=== PATIENT | male | born 1965 | race Two or more races ===

== ENCOUNTER 2017-06-25 20:23 | Emergency (ER) | payer OTHER ==
[2017-06-25 20:51] VITALS: BMI 27.3
--- NOTE | 2017-06-25 21:25 | PDOC ---
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 He describes his pain as a constant 8. Documentation prepared by Socrates Harper, acting as medical office specialist for Miguel Angel Serrano MD. <Socrates Harper - Last Filed: 06/25/17 22:00> - Resident Resident Name: Yesi Guzman - ED Attending Attestation I have performed the following: I have examined & evaluated the patient, The case was reviewed & discussed with the resident, I agree w/resident's findings & plan, Exceptions are as noted - Physicial Exam PE: 06/25/17 22:54 Patient is awake and alert, well-appearing, afebrile, in no distress. 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 Patient's influenza negative; serial abdominal exams reveal no focal tenderness. Patient is able tolerate by mouth. CBC/CMP within normal limit. Will discharge. <Miguel Angel Serrano - Last Filed: 06/25/17 22:57>
[2017-06-25] MEDS ORDERED: SODIUM CHLORIDE 0.9% 1000 ML INFUS.BAG IV ONE (21:37)
[2017-06-25] MEDS ORDERED: ACETAMINOPHEN 1000 MG/100 ML VIAL (NON FORMULARY) IVPB ONE (21:37)
--- NOTE | 2017-06-25 21:42 | PDOC ---
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 He notes the pain is 8/10 and constant, and he has been taking Tylenol and TheraFlu. He has taken Pepto Bismol for the diarrhea and nausea/vomiting and had an episode of black stool after this. He additionally notes generalized weakness and decreased appetite, as well as subjective fever and chills. He denies cough, runny nose, headache, rash, numbness, tingling, weakness, SOB, chest pain, abdominal pain, or any recent sick contacts. He has chronic pain since his H1N1 vaccination reaction in 2011 and takes oxycodone for this. Past History - Past Medical History Allergies/Adverse Reactions: Allergies Allergy/AdvReac Type Severity Reaction Status Date / Time No Known Allergies Allergy Verified 06/25/17 22:36 Home Medications: Ambulatory Orders Ondansetron [Zofran *Odt*] 4 mg SL BID PRN #20 od.tablet 06/25/17 COPD: No - Suicide/Smoking/Psychosocial Hx Smoking History: Never smoked Have you smoked in the past 12 months: No Information on smoking cessation initiated: No Hx Alcohol Use: No Drug/Substance Use Hx: No Substance Use Type: None Review of Systems - Review of Systems Able to Perform ROS?: Yes Constitutional: Yes: Chills, Fever, Loss of Appetite, Malaise, Weakness. No: Unexplained wgt Loss HEENTM: Yes: Throat Pain. No: Nose Congestion Respiratory: No: Cough, Shortness of Breath Cardiac (ROS): No: Chest Pain, Palpitations ABD/GI: Yes: Diarrhea, Nausea, Vomiting. No: Constipated : No: Burning, Dysuria Musculoskeletal: Yes: Muscle Pain. No: Back Pain, Neck Pain Integumentary: No: Bruising, Rash Neurological: No: Headache, Numbness, Tingling, Weakness, Dizziness Endocrine: No: Unexplained Weight Gain, Unexplained Weight Loss *Physical Exam - Vital Signs Last Vital Signs Temp Pulse Resp BP Pulse Ox 98.6 F 82 18 125/74 98 06/25/17 20:36 06/25/17 20:36 06/25/17 20:36 06/25/17 20:36 06/25/17 20:36 - Physical Exam General Appearance: Yes: Nourished, Appropriately Dressed, Other (well- appearing male with flushed cheeks, accompanied at bedside by significant other who is supportive, answering questions appropriately). No: Apparent Distress HEENT: positive: EOMI, MANNY, Normal ENT Inspection, Normal Voice, TMs Normal, Muffled/Hoarse voice (states chronic), Hearing Grossly Normal. negative: Scleral Icterus (R), Scleral Icterus (L), Pharyngeal Erythema, Tonsillar Exudate , Tonsillar Erythema, Nasal Congestion, Rhinorrhea, Sinus Tenderness Neck: positive: Trachea midline, Supple. negative: Tender, Rigid Respiratory/Chest: positive: Lungs Clear, Normal Breath Sounds. negative: Respiratory Distress, Crackles, Rhonchi, Stridor, Wheezing Cardiovascular: positive: Regular Rhythm, Regular Rate. negative: Edema, Murmur Gastrointestinal/Abdominal: positive: Normal Bowel Sounds, Soft. negative: Tender, Organomegaly, Pulsatile Mass, Guarding Lymphatic: negative: Adenopathy, Tenderness Musculoskeletal: positive: Normal Inspection. negative: Decreased Range of Motion, Vertebral Tenderness Extremity: positive: Normal Capillary Refill, Normal Inspection, Normal Range of Motion. negative: Tender, Cyanosis Integumentary: positive: Normal Color, Dry, Warm. negative: Erythema, Rash, Bruising Neurologic: positive: solution architect II-XII NML intact (grossly), Fully Oriented, Alert, Normal Mood/Affect, Normal Response, Motor Strength 5/5 ED Treatment Course - LABORATORY CBC & Chemistry Diagram: 06/25/17 21:56 06/25/17 21:56 Medical Decision Making - Medical Decision Making 51 YOM with stated h/o pulmonary fibrosis who p/w myalgias, nausea, vomiting, diarrhea, and sore throat. VS wnl and NAD on exam, flushed cheeks, HEENT normal exam, heart/lungs/abdomen blue. DDX IBNLT influenza, viral syndrome, strep pharyngitis, much less likely PNA/ bronchitis without cough/SOB. Ordered is CBCD, CMP, IVF, Ofirmev, Flu swab. 06/25/17 23:00 Labs result negative, Flu swab is negative, patient notes improved body pain after Ofirmev and IVF. Zofran 4 mg IVPUSH ordered and the patient is PO trialed, able to tolerate PO fluids and crackers. He is appropriate for DC home with close OP followup. Return precautions are discussed. *DC/Admit/Observation/Transfer Diagnosis at time of Disposition: Viral syndrome - Discharge Dispostion Disposition: HOME Condition at time of disposition: Stable Admit: No - Prescriptions Prescriptions: Ondansetron [Zofran *Odt*] 4 mg SL BID PRN #20 od.tablet PRN Reason: Nausea And/Or Vomiting - Referrals Referrals: Reynaldo Moseley MD [Primary Care Provider] - - Patient Instructions Printed Discharge Instructions: DI for Viral Gastroenteritis -- Adult Additional Instructions: You were seen in the ER for body aches, sore throat, nausea, vomiting, diarrhea , and decreased appetite. We did blood lab work and a flu swab, and there were no abnormalities. We gave you IV fluids, IV Tylenol, and IV Zofran and you were able to keep down food and water. 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 Take Tylenol and Motrin for pain. Please follow up with your primary doctor or return to the ER for any new or worsening symptoms. - Post Discharge Activity
[2017-06-25] MEDS ORDERED: ACETAMINOPHEN INJECTION 100 ML IVPB ONE (21:47)
[2017-06-25 22:02] LABS: BASO % 0.3 % (0-2.0); EOS % 1.1 % (0-4.5); HEMATOCRIT 43.5 % (35.4-49); HEMOGLOBIN 14.2 GM/dL (11.7-16.9); LYMPH % 19.6 % (8-40); MCH 30.3 pg (25.7-33.7); MCHC 32.6 g/dl (32.0-35.9); MEAN CELL VOLUME 93.1 fl (80-96); MEAN PLT VOLUME 7.5 fl (7.5-11.1); MONO % 7.6 % (3.8-10.2); NEUT % 71.4 % (42.8-82.8); PLATELET COUNT 220 K/MM3 (134-434); RBC 4.67 M/mm3 (4.00-5.60); RDW 13.5 % (11.9-15.9); WHITE BLOOD COUNT 7.3 K/mm3 (4.0-10.0)
[2017-06-25 22:32] LABS: ALBUMIN 3.6 g/dl (3.4-5.0); ANION GAP 6 (8-16); BILIRUBIN,TOTAL 0.4 mg/dL (0.2-1.0); BLOOD UREA NITROGEN 10 mg/dL (7-18); CALCIUM 8.2 mg/dL (8.5-10.1); CHLORIDE 106 mmol/L (98-107); CO2 27 mmol/L (21-32); CREATININE 1.1 mg/dL (0.7-1.3); GLUCOSE,RANDOM 105 mg/dL (74-106); MAGNESIUM 2.5 mg/dL (1.8-2.4); POTASSIUM 4.1 mmol/L (3.5-5.1); SGOT/AST 23 U/L (15-37); SGPT/ALT 36 U/L (12-78); SODIUM 139 mmol/L (136-145); TOT PROT 7.5 g/dl (6.4-8.2)
[2017-06-25 22:33] LABS: ALK PHOS 56 U/L (45-117)
[2017-06-25] MEDS ORDERED: ONDANSETRON 4 MG/2 ML VIAL IVPUSH ONE (22:45)
[2017-06-25] MEDS ORDERED: ONDANSETRON 4 MG/2 ML VIAL ONE (22:51)
[2017-06-25 23:10] VITALS: BP 122/70; PULSE 85; TEMP 98.1
== END 2017-06-25 23:11 | disposition home or self-care (01) ==
LOC: JER 20:23
PROC: 3E033NZ Introduction of Analgesics, Hypnotics, Sedatives into Peripheral Vein, Percutaneous Approach (ICD-10-PCS; principal; 2017-06-25)
PROC: 3E033GC Introduction of Other Therapeutic Substance into Peripheral Vein, Percutaneous Approach (ICD-10-PCS; 2017-06-25)
DX: B34.9 Viral infection, unspecified (principal); Z89.022 Acquired absence of left finger(s)
CPT/HCPCS: 36415; 80053; 83735; 84100; 85025; 87804; 99283-25

== ENCOUNTER 2017-10-18 07:02 | Emergency (ER) | payer OTHER ==
[2017-10-18 07:29] VITALS: BMI 25.9
--- NOTE | 2017-10-18 07:40 | PDOC ---
History of Present Illness - General History Source: Patient Exam Limitations: No Limitations - History of Present Illness Initial Comments: 10/18/17 07:36 51yo M with established history of pulmonary fibrosis and chronic pain s/p influenza vaccination (which led to digit amputation and coma; 2011) who presents today with generalized pain. Pt reports that he normally take oxycodone for his chronic pain, however recently he switched his physician to a doctor in the [place] due to insurance reasons. Pt states he recently was seeing his physician and had a bone density scan performed, however he did not receive any of his chronic pain medications. Pt states he started to develop his pain again, however it is not different than his normal chronic pain. Pt usually takes Gabapentin 600mg BID PO along with Percocet 10-325mg PO. Pt denies any headache,f/chills, SOB, palpitations, abdominal pain, diarrhea/constipation. Pt denies any acute neurological abnormalities. <Edward Vazquez - Last Filed: 10/18/17 08:58> <César Saavedra - Last Filed: 10/18/17 09:03> - General Chief Complaint: Pain, Acute Stated Complaint: GENERALIZED PAIN Time Seen by Provider: 10/18/17 07:32 Past History - Past Medical History COPD: No Other medical history: Insomnia - Immunization History Immunization Up to Date: Yes - Suicide/Smoking/Psychosocial Hx Smoking History: Never smoked Have you smoked in the past 12 months: No Information on smoking cessation initiated: No Hx Alcohol Use: No Drug/Substance Use Hx: No Substance Use Type: None <Edward Vazquez - Last Filed: 10/18/17 08:58> <César Saavedra - Last Filed: 10/18/17 09:03> - Past Medical History Allergies/Adverse Reactions: Allergies Allergy/AdvReac Type Severity Reaction Status Date / Time No Known Allergies Allergy Verified 06/25/17 22:36 Home Medications: Ambulatory Orders Gabapentin 600 mg PO BID 10/18/17 Gabapentin 600 mg PO BID #6 tablet 10/18/17 Oxycodone HCl/Acetaminophen [Endocet 10-325 mg Tablet] 1 each PO Q8H PRN #15 tablet MDD 3 tabs 10/18/17 Zolpidem Tartrate [Ambien] 5 mg PO HS 10/18/17 Review of Systems - Review of Systems Constitutional: No: Chills, Fever, Night Sweats, Weakness HEENTM: No: Eye Pain, Blurred Vision, Nose Congestion, Throat Pain Respiratory: No: Cough, Shortness of Breath, Wheezing Cardiac (ROS): No: Chest Pain, Lightheadedness, Palpitations, Syncope, Chest Tightness ABD/GI: No: Constipated, Diarrhea, Nausea, Vomiting, Abdominal cramping Musculoskeletal: Yes: Back Pain. No: Neck Pain Neurological: No: Headache, Numbness, Tingling, Dizziness <Edward Vazquez - Last Filed: 10/18/17 08:58> *Physical Exam - Vital Signs Last Vital Signs Temp Pulse Resp BP Pulse Ox 98.0 F 60 17 108/79 100 10/18/17 07:22 10/18/17 07:22 10/18/17 07:22 10/18/17 07:22 10/18/17 07:22 - Physical Exam Comments: 10/18/17 07:39 GEN: NAD, awake, alert, laying in bed HEENT: EOMI, MARI, sclera anicteric, moist mucosa Neck: ROM intact, no JVD LUNGS: Coarse breath sounds diffusely with satisfactory air entry CARDIAC: RRR no murmurs appreciated ABD: Soft, NT/ND, normoactive BS, no guarding, no rebound. EXT: Digit amputation noted. No edema. <Edward Vazquez - Last Filed: 10/18/17 08:58> - Vital Signs Last Vital Signs Temp Pulse Resp BP Pulse Ox 98.0 F 60 17 108/79 100 10/18/17 07:22 10/18/17 07:22 10/18/17 07:22 10/18/17 07:22 10/18/17 07:22 <César Saavedra - Last Filed: 10/18/17 09:03> Medical Decision Making - Medical Decision Making 10/18/17 07:45 Given pt's history most likely chronic pain due to not receiving his oxycodone and gabapentin --Doubt any type of PE: no edema, SpO2 100% on RA, no tachycardia --Doubt any WV: more pleuritic pain in nature and generalized --Doubt any dissection or aneurysm: No neurological deficits; BP controlled today 108/79 No need for workup Online directory shows no recent narcotic pickup 10/18/17 08:05 Explained to patient the need for his primary to follow-up and pt has an appointment with a pain specialist on November 09 of this year Can give a couple days supply, however discussed this isn't a long-term solution. <Edward Vazquez - Last Filed: 10/18/17 08:58> *DC/Admit/Observation/Transfer - Discharge Dispostion Admit: No <Edward Vazquez - Last Filed: 10/18/17 08:58> <César Saavedra - Last Filed: 10/18/17 09:03> Diagnosis at time of Disposition: Chronic pain Qualifiers: Chronic pain type: other chronic pain Qualified Code(s): G89.29 - Other chronic pain - Discharge Dispostion Disposition: HOME Condition at time of disposition: Stable - Prescriptions Prescriptions: Gabapentin 600 mg PO BID #6 tablet Oxycodone HCl/Acetaminophen [Endocet 10-325 mg Tablet] 1 each PO Q8H PRN #15 tablet MDD 3 tabs PRN Reason: Pain - Referrals Referrals: Reynaldo Moseley MD [Primary Care Provider] - Zac Pascal MD [Staff Physician] - - Patient Instructions Additional Instructions: You were seen here due to your chronic pain. A few days' supply has been prescribed to your pharmacy This is not a long-term solution and the sullivan will be to follow with your primary physician and your pain specialist appointment on November 09. If you do not have a primary physician feel free to call [phone] which is the resident offices at [facility] and schedule an appointment. If you feel any pain that's different than your usual chronic pain, please feel free to return if it is concerning to you. - Post Discharge Activity
--- NOTE | 2017-10-18 09:02 | PDOC ---
Attending Attestation - Resident Resident Name: Edward Vazquez - ED Attending Attestation I have performed the following: I have examined & evaluated the patient, The case was reviewed & discussed with the resident, I agree w/resident's findings & plan - HPI HPI: 10/18/17 08:58 51-year-old male with history of chronic pain syndrome/myalgia unclear severe illness in 2011 presents for refill of his chronic pain medications. Patient is no acute complaints, has daily myalgias and "lung pains" since his prolonged ICU stay, maintained on daily oxycodone 3 times a day prescribed by his primary care physician. 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 - Physicial Exam PE: 10/18/17 09:00 Vital signs normal Well-appearing seated comfortably in stretcher speaking full sentences Lungs are clear - Medical Decision Making 10/18/17 09:00 Patient seen and evaluated with the resident. I agree with the overall evaluation, assessment, and management with the following summary of visit: 51-year-old male with chronic pain syndrome presents for pain medication refill without any acute complaints and no red flags on history or physical exam. Has established a pain specialist follow-up, presentation seems reasonable given his history. Has bottle prescribed from March 2017 by his previous PCP, Dr. Torres. will give short term refill, prompt f/u in [facility] medicine clinic for further refills before his 11/09 appt understands return criteria
[2017-10-18 09:12] VITALS: BP 139/83; PULSE 62; TEMP 97.8
== END 2017-10-18 09:12 | disposition home or self-care (01) ==
LOC: JER 07:02
DX: G89.29 Other chronic pain (principal)
CPT/HCPCS: 99283-25

== ENCOUNTER 2018-05-02 16:37 | Emergency (ER) | payer OTHER ==
[2018-05-02 16:52] VITALS: BMI 26.6
--- NOTE | 2018-05-02 16:52 | PDOC ---
Rapid Medical Evaluation Chief Complaint: Lightheaded Time Seen by Provider: 05/02/18 16:49 Medical Evaluation: Allergies Allergy/AdvReac Type Severity Reaction Status Date / Time No Known Allergies Allergy Verified 06/25/17 22:36 05/02/18 16:49 I have performed a brief in person evaluation of this patient. This patient presents with a CC of: dizziness Pt is a 52 Yo male who states that he has been dizzy x 7 days. He denies slurred speech. He denies UE or LE paresthesia. PE: Skin: Clear Lungs: Clear Heart: RRR Abd: No pain MS: Moves all extremities without difficulty. Neuro: Alert and oriented, no protanator drift, no slurred speech, no ataxia. 5/ 5 strength in UE and LE Psych: Appropriate affect I have ordered the following: basic labs/EKG The patient will proceed to the ED for further evaluation. Discharge Disposition - Diagnosis Dizziness - Referrals Referrals: Zac Pascal MD [Primary Care Provider] - - Patient Instructions - Post Discharge Activity
[2018-05-02 17:20] LABS: BASO % 0.5 % (0-2.0); EOS % 0.6 % (0-4.5); HEMATOCRIT 43.7 % (35.4-49); HEMOGLOBIN 15.2 GM/dL (11.7-16.9); LYMPH % 14.2 % (8-40); MCHC 34.7 g/dl (32.0-35.9); MEAN CELL VOLUME 92.1 fl (80-96); MONO % 3.4 % (3.8-10.2); NEUT % 81.3 % (42.8-82.8); PLATELET COUNT 260 K/MM3 (134-434); RBC 4.75 M/mm3 (4.00-5.60); RDW 12.8 % (11.9-15.9); WHITE BLOOD COUNT 10.4 K/mm3 (4.0-10.0)
[2018-05-02] MEDS ORDERED: MECLIZINE HCL 25 MG TABLET (FP) PO ONE (17:27)
--- NOTE | 2018-05-02 17:35 | PDOC ---
History of Present Illness - General Chief Complaint: Lightheaded Stated Complaint: Lightheaded Time Seen by Provider: 05/02/18 16:49 History Source: Patient Exam Limitations: No Limitations - History of Present Illness Initial Comments: 05/02/18 17:30 Pt is a 52yo m with PMH of pulmonary fibrosis presenting to ED with complaints of dizziness which started suddenly 4days ago on Tuesday. Pt said he got up in the morning and had the sensation that the room is spinning. When ever he changes positions or walks, he feels dizzy. He denies changes in vision, tinnitus, ear fullness, headache, chest pain, SOB, n/v/d, weakness, numbness/ tingling. recent illnesses. He never had a feeling like this before. Denies hitting head, losing consciousness or falling down, but he does feel like he is about to fall when he walks due to dizziness. No recent surgeries, calf swelling , history of clots. PMD: [place] PMH: pulmonary fibrosis PSH: lung biopsy, L 2nd digit amputation Meds: prednisone, oxycodone, gabapentin, Ambien Allergies: ndka Past History - Past Medical History Allergies/Adverse Reactions: Allergies Allergy/AdvReac Type Severity Reaction Status Date / Time No Known Allergies Allergy Verified 05/02/18 16:49 Home Medications: Ambulatory Orders Gabapentin 600 mg PO BID #6 tablet 10/18/17 Oxycodone HCl/Acetaminophen [Endocet 10-325 mg Tablet] 1 each PO Q8H PRN #15 tablet MDD 3 tabs 10/18/17 Zolpidem Tartrate [Ambien] 5 mg PO HS 10/18/17 Meclizine HCl [Antivert -] 25 mg PO DAILY #7 tablet 05/02/18 COPD: No (lung disease) - Immunization History Immunization Up to Date: Yes - Suicide/Smoking/Psychosocial Hx Smoking History: Never smoked Have you smoked in the past 12 months: No Hx Alcohol Use: No Drug/Substance Use Hx: No Substance Use Type: None Review of Systems - Review of Systems Constitutional: No: Chills, Fever HEENTM: No: Eye Pain, Recent change in vision, Ear Discharge, Tinnitus, Mouth Pain Respiratory: No: Cough, Shortness of Breath Cardiac (ROS): No: Chest Pain, Lightheadedness, Palpitations, Syncope ABD/GI: Yes: Constipated. No: Diarrhea, Nausea, Rectal Bleeding, Vomiting, Tarry Stools : No: Burning, Dysuria, Hematuria Musculoskeletal: No: Back Pain, Muscle Weakness, Neck Pain Neurological: Yes: Dizziness. No: Headache, Numbness, Tingling, Tremors, Weakness Hematologic/Lymphatic: No: Blood Clots *Physical Exam - Vital Signs Last Vital Signs Temp Pulse Resp BP Pulse Ox 98.4 F 76 18 126/81 99 05/02/18 16:49 05/02/18 16:49 05/02/18 16:49 05/02/18 16:49 05/02/18 16:49 - Physical Exam General Appearance: Yes: Nourished, Appropriately Dressed. No: Apparent Distress HEENT: positive: EOMI (with horizontal nystagmus. Illicits dizziness.), MANNY, Hearing Grossly Normal. negative: Hearing Decreased Neck: positive: Trachea midline, Supple. negative: Lymphadenopathy (R), Lymphadenopathy (L) Respiratory/Chest: positive: Lungs Clear, Normal Breath Sounds. negative: Crackles, Rales, Rhonchi, Stridor, Wheezing Cardiovascular: positive: Regular Rhythm, Regular Rate, S1, S2. negative: Edema , JVD, Murmur Vascular Pulses: Carotid (R): 2+, Carotid (L): 2+, Dorsalis-Pedis (R): 2+, Doralis-Pedis (L): 2+ Gastrointestinal/Abdominal: positive: Normal Bowel Sounds, Soft. 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 negative: Facial Droop, Numbness, Sensory Deficit ED Treatment Course - LABORATORY CBC & Chemistry Diagram: 05/02/18 17:12 05/02/18 17:12 Medical Decision Making - Medical Decision Making 05/02/18 17:34 Pt is a 52yo m with PMH of pulmonary fibrosis presenting to ED with complaints of dizziness which started suddenly 4days ago on Tuesday Vitals: Selected Entries 05/02/18 16:49 Temperature 98.4 F Pulse Rate 76 Respiratory 18 Rate Blood Pressure 126/81 Blood Pressure 96 Mean O2 Sat by Pulse 99 Oximetry (%) PE: horizontal nystagmus illiciting dizziness. no neurological deficits, normal exam otherwise. DDx: central v. peripheral vertigo. BPPV, Meniere's, posterior stroke, vertebral artery dissection -Sudden onset, positional. High suspicion for BPPV. Low suspicion for stroke given symptoms are transient, based on position changes, sudden onset. Labs, ekg ordered by [facility]ME. Will give meclizine, IVF and reevaluate. 05/02/18 18:22 Laboratory Tests 05/02/18 05/02/18 17:12 17:12 WBC 10.4 H Hgb 15.2 Hct 43.7 Plt Count 260 Sodium 140 Potassium 4.2 Creatinine 1.2 Troponin I < 0.02 EKG: nsr. normal axis. MT and QTc normal. No stephanie or depressions. Flattented T in aVL. Inverted T in V1, V2. Labs wnl. Will reevaluate after fluids. Pt says he still feels dizzy after meclizine 05/02/18 18:27 *DC/Admit/Observation/Transfer Diagnosis at time of Disposition: Dizziness, Vertigo - Discharge Dispostion Disposition: HOME Condition at time of disposition: Improved Decision to Admit order: No - Referrals Referrals: Zac Pascal MD [Primary Care Provider] - - Patient Instructions Printed Discharge Instructions: DI for Vertigo Additional Instructions: You were seen here today for dizziness. Your tests were normal. The most likely cause of your symptoms is vertigo. I recommend following up with your primary care doctor for further evaluation and management of your symptoms. I have sent a prescription over to your pharmacy. Please take as directed. Come back to the emergency room if dizziness gets worse, you start vomiting, you develop headache, medication does not help, you have numbness/tingling or weakness in any part of your body or if any new concerning symptom develops. Thank you - Post Discharge Activity Forms/Work/School Notes: Back to Work
[2018-05-02] MEDS ORDERED: MECLIZINE HCL 25 MG TABLET (FP) ONE (17:42)
[2018-05-02 17:51] LABS: ALBUMIN 4.1 g/dl (3.4-5.0); ALK PHOS 75 U/L (45-117); ANION GAP 7 MMOL/L (8-16); BILIRUBIN,TOTAL 0.4 mg/dL (0.2-1); BLOOD UREA NITROGEN 17 mg/dL (7-18); CALCIUM 9.4 mg/dL (8.5-10.1); CHLORIDE 105 mmol/L (98-107); CO2 28 mmol/L (21-32); CREATININE 1.2 mg/dL (0.55-1.3); GLUCOSE,RANDOM 101 mg/dL (74-106); POTASSIUM 4.2 mmol/L (3.5-5.1); SGOT/AST 33 U/L (15-37); SGPT/ALT 45 U/L (13-61); SODIUM 140 mmol/L (136-145); TOT PROT 8.3 g/dl (6.4-8.2)
[2018-05-02] MEDS ORDERED: SODIUM CHLORIDE 1,000 ML IV STA (18:21)
--- NOTE | 2018-05-02 19:05 | PDOC ---
*Physical Exam - Vital Signs Last Vital Signs Temp Pulse Resp BP Pulse Ox 98.4 F 76 18 126/81 99 05/02/18 16:49 05/02/18 16:49 05/02/18 16:49 05/02/18 16:49 05/02/18 16:49 ED Treatment Course - LABORATORY CBC & Chemistry Diagram: 05/02/18 17:12 05/02/18 17:12 - ADDITIONAL ORDERS Additional order review: Laboratory Results 05/02/18 17:12 Sodium 140 Potassium 4.2 Chloride 105 Carbon Dioxide 28 Anion Gap 7 L BUN 17 Creatinine 1.2 Creat Clearance w eGFR > 60 Random Glucose 101 Calcium 9.4 Total Bilirubin 0.4 AST 33 ALT 45 Alkaline Phosphatase 75 Creatine Kinase 308 Creatine Kinase Index 1.1 CK-MB (CK-2) 3.5 Troponin I < 0.02 Total Protein 8.3 H Albumin 4.1 05/02/18 17:12 RBC 4.75 MCV 92.1 MCHC 34.7 RDW 12.8 MPV 8.0 Neutrophils % 81.3 Lymphocytes % 14.2 D Monocytes % 3.4 L Eosinophils % 0.6 Basophils % 0.5 - Medications Given in the ED: ED Medications Discontinued Medications Generic Name Dose Route Start Last Admin Trade Name Freq PRN Reason Stop Dose Admin Meclizine HCl 25 mg 05/02/18 17:27 05/02/18 17:45 Antivert - PO 05/02/18 17:28 25 mg ONCE ONE Administration Medical Decision Making - Medical Decision Making Pt signed out by Dr. Hargrove. Pt was provided IVF and meclizine. Pt states he is feeling better, is still receiving IVF. Will reassess and make sure pt can ambulate before discharge. 05/02/18 19:04 IVF completed, pt states vertigo is much improved. Pt able to ambulate without difficulty. 05/02/18 19:38 Considering normal lab results and imaging pt can be discharged to home with follow-up. Pt advised to follow-up with PCP in 1-2 days. Strict return precautions provided with pt understanding. 05/02/18 19:43 *DC/Admit/Observation/Transfer Diagnosis at time of Disposition: Dizziness, Vertigo - Discharge Dispostion Disposition: HOME Condition at time of disposition: Improved - Prescriptions Prescriptions: Meclizine HCl [Antivert -] 25 mg PO DAILY #7 tablet - Referrals Referrals: Zac Pascal MD [Primary Care Provider] - - Patient Instructions Printed Discharge Instructions: DI for Vertigo Additional Instructions: You were seen here today for dizziness. Your tests were normal. The most likely cause of your symptoms is vertigo. I recommend following up with your primary care doctor for further evaluation and management of your symptoms. I have sent a prescription over to your pharmacy. Please take as directed. Come back to the emergency room if dizziness gets worse, you start vomiting, you develop headache, medication does not help, you have numbness/tingling or weakness in any part of your body or if any new concerning symptom develops. Thank you - Post Discharge Activity Forms/Work/School Notes: Back to Work
[2018-05-02 19:06] LABS: INR 1.09 (0.83-1.09); PROTHROMBIN TIME (PATIENT) 12.9 SEC (9.7-13.0)
[2018-05-02 19:40] VITALS: BP 107/60; PULSE 52; TEMP 98
--- NOTE | 2018-05-02 19:50 | PDOC ---
Attending Attestation - HPI HPI: 05/02/18 20:02 The patient is a 52 year old male with a significant past medical history of pulmonary fibrosis presenting to ED with complaints of sudden onset of dizziness 4 days ago. The patient states he got up [place] morning and had the sensation that the room is spinning which is exacerbated by changing his positions. He denies ever feeling like this before. He denies any head trauma or visual changes. The patient denies chest pain, shortness of breath, headache and dizziness. The patient denies fever, chills, nausea, vomit, diarrhea and constipation. The patient denies dysuria, frequency, urgency and hematuria. Allergies: NKDA PMD: Dr. 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 Meds: prednisone, oxycodone, gabapentin, Ambien - Medical Decision Making 05/02/18 20:02 Documentation prepared by Radha Zhu, acting as healthcare or medical for Hillary Garza MD <Radha Zhu - Last Filed: 05/02/18 20:02> - Resident Resident Name: Aniyah Hargrove - ED Attending Attestation I have performed the following: I have examined & evaluated the patient, The case was reviewed & discussed with the resident, I agree w/resident's findings & plan, Exceptions are as noted - HPI HPI: 05/02/18 19:45 52 yo male p/w sensation of the room spinning head ncat eyes manisha eomi,++ horizontal nystagmus neck no jvd lungs cta b/l cvs [id number] abd soft,nontender no flank tenderness ext no edema 'skin wawrm and dry neuro no ataxia,cn2-12 grossly intact ,motor strength 5/5 b/l ,this is after he received meclizine,no facial droop - Physicial Exam PE: 05/03/18 01:53 wnwd 52 yo male p/w dizziness head ncat eyes + nystagmus neck supple lungs cta b/l cvs [id number] abd nontender ext no e/c/c neuro axox3,ambulatory,motor strength 5/5 skin warm and dry psych appropriate - Medical Decision Making 05/02/18 19:50 pt;s symptoms improved with meclizine imp vertigo <Hillary Garza - Last Filed: 05/03/18 01:55>
--- NOTE | 2018-05-04 11:12 | EKG ---
Test Reason : Blood Pressure : / mmHG Vent. Rate : 064 BPM Atrial Rate : 064 BPM P-R Int : 144 ms QRS Dur : 082 ms QT Int : 412 ms P-R-T Axes : 044 026 055 degrees QTc Int : 425 ms NORMAL SINUS RHYTHM NORMAL ECG NO PREVIOUS ECGS AVAILABLE Confirmed by RADHA DE ANDA MD ([id number]) on 05/04/2018 11:11:49 AM Referred By: Confirmed By:RADHA DE ANDA MD
== END 2018-05-02 20:03 | disposition home or self-care (01) ==
LOC: JER 16:37
PROC: 3E0337Z Introduction of Electrolytic and Water Balance Substance into Peripheral Vein, Percutaneous Approach (ICD-10-PCS; principal; 2018-05-02)
DX: R42 Dizziness and giddiness (principal); Z87.09 Personal history of other diseases of the respiratory system; Z89.022 Acquired absence of left finger(s)
CPT/HCPCS: 36415; 80053; 82550; 82553; 84484; 85025; 85610; 86850; 86900; 86901; 93005; 93010; 99284-25; J7030

== ENCOUNTER 2018-06-04 12:13 | Emergency (ER) | payer OTHER ==
[2018-06-04 12:28] VITALS: BMI 25.9
[2018-06-04] MEDS ORDERED: MECLIZINE HCL 25 MG TABLET (FP) PO ONE ×2 (12:51→16:56)
[2018-06-04] MEDS ORDERED: SODIUM CHLORIDE 1,000 ML IV STA (12:51)
[2018-06-04] MEDS ORDERED: MECLIZINE HCL 25 MG TABLET (FP) ONE ×2 (12:55→17:14)
--- NOTE | 2018-06-04 13:03 | PDOC ---
History of Present Illness - General Chief Complaint: Lightheaded Stated Complaint: DIZZINESS Time Seen by Provider: 06/04/18 12:35 History Source: Patient Exam Limitations: Clinical Condition - History of Present Illness Initial Comments: 06/04/18 12:57 Patient with history of pulmonary fibrosis not on meds present with complaint of dizziness and spinning sensation upon wake yesterday and today. Patient reported room spinning wench he gets out of bed in the morning. Patient was seen a month ago for similar symptoms and was discharged home on meclizine for vertigo with advise to follow with PCP by reported PCP will not continue medication and has not been taking any medications since. Patient has not had any follow-up PCP visit. Patient reported seen advance agent 2 months ago for pulmonary fibrosis and everything was fine. Patient never had a history of vertigo on to a month ago. Patient denies nausea, vomiting. Patient endorses light increase sensitivity. Patient denies any other symptoms Timing/Duration: 24 hours Past History - Past Medical History Allergies/Adverse Reactions: Allergies Allergy/AdvReac Type Severity Reaction Status Date / Time No Known Allergies Allergy Verified 06/04/18 12:28 Home Medications: Ambulatory Orders Gabapentin 600 mg PO BID #6 tablet 10/18/17 Oxycodone HCl/Acetaminophen [Endocet 10-325 mg Tablet] 1 each PO Q8H PRN #15 tablet MDD 3 tabs 10/18/17 Zolpidem Tartrate [Ambien] 5 mg PO HS 10/18/17 Meclizine HCl [Antivert -] 25 mg PO DAILY #7 tablet 05/02/18 Meclizine HCl 25 mg PO Q6H PRN #20 tab.chew 06/04/18 Prednisone 5 mg PO DAILY 06/04/18 COPD: No (lung disease, PULMONARY FIBROSIS) - Immunization History Immunization Up to Date: Yes - Suicide/Smoking/Psychosocial Hx Smoking History: Never smoked Have you smoked in the past 12 months: No Information on smoking cessation initiated: No Hx Alcohol Use: No Drug/Substance Use Hx: No Substance Use Type: None Review of Systems - Review of Systems Able to Perform ROS?: Yes Is the patient limited Maltese proficient: No Constitutional: No: Chills, Fever, Malaise, Weakness HEENTM: No: Eye Pain, Blurred Vision, Tearing, Recent change in vision, Double Vision Respiratory: No: Symptoms reported, See HPI, Cough, Orthopnea, Shortness of Breath, SOB with Exertion, SOB at Rest, Stridor, Wheezing, Productive cough, Hemoptysis, Other Cardiac (ROS): No: Symptoms Reported, See HPI, Chest Pain, Edema, Irregular Heart Rate, Lightheadedness, Palpitations, Syncope, Chest Tightness, Other ABD/GI: No: Nausea, Vomiting Neurological: Yes: Pre-Existing Deficit, Dizziness. No: Headache, Numbness, Paresthesia, Tingling, Weakness, Unsteady Gait, Ataxia All Other Systems: Reviewed and Negative *Physical Exam - Vital Signs Last Vital Signs Temp Pulse Resp BP Pulse Ox 98.0 F 68 16 126/79 98 06/04/18 12:26 06/04/18 12:26 06/04/18 12:26 06/04/18 12:26 06/04/18 12:26 - Physical Exam Comments: 06/04/18 13:00 GENERAL: Well developed, well nourished. Awake and alert. No acute distress. HEENT: Normocephalic, atraumatic. PERRLA, EOMI. No conjunctival pallor. Sclera are non-icteric. Moist mucous membranes. Oropharynx is clear. NECK: Supple. Full ROM. CARDIOVASCULAR: Regular rate and rhythm. No murmurs, rubs, or gallops. Distal pulses are 2+ and symmetric. PULMONARY: No evidence of respiratory distress. Lungs clear to auscultation bilaterally. No wheezing, rales or rhonchi. ABDOMINAL: Soft. Non-tender. Non-distended. No rebound or guarding. No organomegaly. Normoactive bowel sounds. MUSCULOSKELETAL Normal range of motion at all joints. EXTREMITIES: No cyanosis. No clubbing. No edema. No calf tenderness. SKIN: Warm and dry. Normal capillary refill. No rashes. No jaundice. NEUROLOGICAL: Alert, awake, appropriate. Gait is normal without ataxia. PSYCHIATRIC: Cooperative. Good eye contact. Appropriate mood General Appearance: Yes: Nourished, Appropriately Dressed. No: Apparent Distress Moderate Sedation - Procedure Monitoring Vital Signs: Procedure Monitoring Vital Signs Temperature 98.0 F 06/04/18 12:26 Pulse Rate 68 06/04/18 12:26 Respiratory Rate 16 06/04/18 12:26 Blood Pressure 126/79 06/04/18 12:26 O2 Sat by Pulse Oximetry (%) 98 06/04/18 12:26 ED Treatment Course - LABORATORY CBC & Chemistry Diagram: 06/04/18 13:11 06/04/18 13:15 Medical Decision Making - Medical Decision Making 06/04/18 13:00 Patient with history of pulmonary fibrosis present with complaint of spinning sensation and dizziness upon wake when he gets out of bed. Patient has similar episode a month ago and all workup was negative and patient discharged home with treatment for vertigo. Clinical exam unremarkable with no more neuro exams. EKG shows NSR CBC, CMP labs ordered. Meclizine 25 mg by mouth and IV hydration with 1 L normal saline ordered. Will consider a head CAT scan based on lab results. 06/04/18 13:03 06/04/18 14:35 Patient received IL NS bolus and meclizine 25mg PO. report still feeling dizzy. lab wnl. reglan 10mg IV ordered . head CT ordered to r/o any intracranial pathology 06/04/18 16:19 dizziness improves with reglan and IVF. head CT shows no acute pathology. patient stable for discharge on meclizine with neurology follow-up *DC/Admit/Observation/Transfer Diagnosis at time of Disposition: Vertigo, Dizziness - Discharge Dispostion Disposition: HOME Condition at time of disposition: Stable Decision to Admit order: No - Prescriptions Prescriptions: Meclizine HCl 25 mg PO Q6H PRN #20 tab.chew PRN Reason: vertigo - Referrals Referrals: Zac Pascal MD [Primary Care Provider] - Sean Brian MD [Staff Physician] - - Patient Instructions Printed Discharge Instructions: Benign Paroxysmal Positional Vertigo, Vertigo Additional Instructions: your labs was normal. your head CAT scan was negative. take medication as prescribed as needed for vertigo. Follow-up with referred neurologist Dr. Brian as soon as possible - Post Discharge Activity
--- NOTE | 2018-06-04 13:10 | PDOC ---
*Physical Exam - Vital Signs Last Vital Signs Temp Pulse Resp BP Pulse Ox 98.0 F 68 16 126/79 98 06/04/18 12:26 06/04/18 12:26 06/04/18 12:26 06/04/18 12:26 06/04/18 12:26 <Ino Winston - Last Filed: 06/04/18 13:10> - Vital Signs Last Vital Signs Temp Pulse Resp BP Pulse Ox 98.0 F 68 16 126/79 98 06/04/18 12:26 06/04/18 12:26 06/04/18 12:26 06/04/18 12:26 06/04/18 12:26 <Theo Ernst - Last Filed: 06/04/18 16:26> Heart Score/ECG Review - ECG Impressions Comment:: 06/04/18 13:10 Twelve-lead EKG was performed and reviewed by me. There is normal sinus rhythm with a normal rate. Rate of 68 The axis is normal. The intervals are normal. There is normal R wave progression There are no ST or T wave abnormalities. Impression: Normal twelve-lead EKG <Marcelo Winstonan - Last Filed: 06/04/18 13:10> ED Treatment Course - LABORATORY CBC & Chemistry Diagram: 06/04/18 13:11 06/04/18 13:15 - ADDITIONAL ORDERS Additional order review: Laboratory Results 06/04/18 13:15 Sodium 142 Potassium 4.5 Chloride 108 H Carbon Dioxide 27 Anion Gap 6 L BUN 13 Creatinine 1.1 Creat Clearance w eGFR > 60 Random Glucose 98 Calcium 8.6 Total Bilirubin 0.3 AST 32 ALT 47 Alkaline Phosphatase 75 Total Protein 7.5 Albumin 3.5 06/04/18 13:11 RBC 4.76 MCV 91.5 MCHC 32.5 RDW 12.9 MPV 7.8 Neutrophils % 70.2 Lymphocytes % 19.8 D Monocytes % 6.6 D Eosinophils % 2.9 D Basophils % 0.5 - RADIOLOGY Radiology Studies Ordered: Category Date Time Status HEAD CT WITH AND W/O CONTRAST [CT] Stat CT Scan 06/04/18 15:40 Completed - Medications Given in the ED: ED Medications Discontinued Medications Generic Name Dose Route Start Last Admin Trade Name Freq PRN Reason Stop Dose Admin Sodium Chloride 1,000 mls @ 1,000 mls/hr 06/04/18 12:51 06/04/18 13:14 Normal Saline - IV 06/04/18 13:50 1,000 mls/hr ASDIR STA Administration Meclizine HCl 25 mg 06/04/18 12:51 06/04/18 13:14 Antivert - PO 06/04/18 12:52 25 mg ONCE ONE Administration Metoclopramide HCl 10 mg 06/04/18 14:35 06/04/18 14:48 Reglan Injection - IVPUSH 06/04/18 14:36 10 mg ONCE ONE Administration <Theo Ernst - Last Filed: 06/04/18 16:26> Medical Decision Making - Medical Decision Making 06/04/18 13:09 The patient was seen and evaluated in conjunction with RACHELL Ernst under my direct supervision, ancillary studies were reviewed. I independently interviewed and evaluated the patient and I agree with the plan as outlined by RACHELL Ernst . <Ion Winston - Last Filed: 06/04/18 13:10> *DC/Admit/Observation/Transfer <Ion Winston - Last Filed: 06/04/18 13:10> <Theo Ernst - Last Filed: 06/04/18 16:26> Diagnosis at time of Disposition: Vertigo, Dizziness - Discharge Dispostion Disposition: HOME Condition at time of disposition: Stable - Prescriptions Prescriptions: Meclizine HCl 25 mg PO Q6H PRN #20 tab.chew PRN Reason: vertigo - Referrals Referrals: Sean Brian MD [Staff Physician] - Zac aPscal MD [Primary Care Provider] - - Patient Instructions Printed Discharge Instructions: Vertigo, Benign Paroxysmal Positional Vertigo Additional Instructions: your labs was normal. your head CAT scan was negative. take medication as prescribed as needed for vertigo. Follow-up with referred neurologist Dr. Brian as soon as possible - Post Discharge Activity
[2018-06-04 13:43] LABS: BASO % 0.5 % (0-2.0); EOS % 2.9 % (0-4.5); HEMATOCRIT 43.6 % (35.4-49); HEMOGLOBIN 14.2 GM/dL (11.7-16.9); LYMPH % 19.8 % (8-40); MCH 29.8 pg (25.7-33.7); MCHC 32.5 g/dl (32.0-35.9); MEAN CELL VOLUME 91.5 fl (80-96); MEAN PLT VOLUME 7.8 fl (7.5-11.1); MONO % 6.6 % (3.8-10.2); NEUT % 70.2 % (42.8-82.8); PLATELET COUNT 248 K/MM3 (134-434); RBC 4.76 M/mm3 (4.00-5.60); RDW 12.9 % (11.9-15.9); WHITE BLOOD COUNT 9.9 K/mm3 (4.0-10.0)
[2018-06-04 14:15] LABS: ALBUMIN 3.5 g/dl (3.4-5.0); ALK PHOS 75 U/L (45-117); ANION GAP 6 MMOL/L (8-16); BILIRUBIN,TOTAL 0.3 mg/dL (0.2-1); BLOOD UREA NITROGEN 13 mg/dL (7-18); CALCIUM 8.6 mg/dL (8.5-10.1); CHLORIDE 108 mmol/L (98-107); CO2 27 mmol/L (21-32); CREATININE 1.1 mg/dL (0.55-1.3); GLUCOSE,RANDOM 98 mg/dL (74-106); POTASSIUM 4.5 mmol/L (3.5-5.1); SGOT/AST 32 U/L (15-37); SGPT/ALT 47 U/L (13-61); SODIUM 142 mmol/L (136-145); TOT PROT 7.5 g/dl (6.4-8.2)
[2018-06-04] MEDS ORDERED: METOCLOPRAMIDE HCL INJECTION 10 MG/2 ML VIAL IVPUSH ONE (14:35)
[2018-06-04] MEDS ORDERED: METOCLOPRAMIDE HCL INJECTION 10 MG/2 ML VIAL ONE (14:41)
[2018-06-04] MEDS ORDERED: SODIUM CHLORIDE 1,000 ML IV SCH (14:45)
[2018-06-04 16:55] VITALS: BP 123/72; PULSE 69; TEMP 98.2
--- NOTE | 2018-06-04 17:15 | EKG ---
Test Reason : Blood Pressure : / mmHG Vent. Rate : 068 BPM Atrial Rate : 068 BPM P-R Int : 150 ms QRS Dur : 076 ms QT Int : 394 ms P-R-T Axes : 057 038 047 degrees QTc Int : 418 ms NORMAL SINUS RHYTHM NORMAL ECG WHEN COMPARED WITH ECG OF 02-MAY-2018 17:00, NO SIGNIFICANT CHANGE WAS FOUND Confirmed by KEANU HUNTLEY MD ([id number]) on 06/04/2018 5:14:50 PM Referred By: Confirmed By:KEANU HUNTLEY MD
== END 2018-06-04 16:55 | disposition home or self-care (01) ==
LOC: JER 12:13
PROC: 3E033GC Introduction of Other Therapeutic Substance into Peripheral Vein, Percutaneous Approach (ICD-10-PCS; principal; 2018-06-04)
PROC: 3E0337Z Introduction of Electrolytic and Water Balance Substance into Peripheral Vein, Percutaneous Approach (ICD-10-PCS; 2018-06-04)
DX: R42 Dizziness and giddiness (principal); J84.10 Pulmonary fibrosis, unspecified
CPT/HCPCS: 36415; 70470-TC; 80053; 85025; 93005; 93010; 99283-25; J7030

== ENCOUNTER 2018-07-11 20:05 | Emergency (ER) | payer OTHER ==
[2018-07-11 20:14] VITALS: BMI 25.8
--- NOTE | 2018-07-11 20:15 | PDOC ---
Rapid Medical Evaluation Medical Evaluation: Allergies Allergy/AdvReac Type Severity Reaction Status Date / Time No Known Allergies Allergy Verified 07/11/18 20:08 Vital Signs Temp Pulse Resp BP Pulse Ox 97.6 F 69 20 146/66 98 07/11/18 20:08 07/11/18 20:08 07/11/18 20:08 07/11/18 20:08 07/11/18 20:08 I have performed a brief in-person evaluation of this patient. The patient presents with a chief complaint of: C/O vertigo x 2 months; seen prior for this, had CT head which was negative, d/willie on Meclizine which helped for a period; saw neurologist last week and is scheduled for MRI next week Pertinent physical exam findings: In NAD, no nystagmus, no focal deficits, normal gait I have ordered the following: Labs The patient will proceed to the ED for further evaluation. 07/11/18 20:14
[2018-07-11 20:35] LABS: BASO % 0.5 % (0-2.0); EOS % 1.4 % (0-4.5); HEMOGLOBIN 14.9 GM/dL (11.7-16.9); LYMPH % 27.5 % (8-40); MCHC 34.5 g/dl (32.0-35.9); MEAN CELL VOLUME 89.9 fl (80-96); MEAN PLT VOLUME 7.9 fl (7.5-11.1); MONO % 6.4 % (3.8-10.2); NEUT % 64.2 % (42.8-82.8); PLATELET COUNT 264 K/MM3 (134-434); RBC 4.79 M/mm3 (4.00-5.60); RDW 13.2 % (11.9-15.9)
[2018-07-11 21:21] LABS: ANION GAP 7 MMOL/L (8-16); BLOOD UREA NITROGEN 13 mg/dL (7-18); CALCIUM 9.2 mg/dL (8.5-10.1); CHLORIDE 106 mmol/L (98-107); CO2 28 mmol/L (21-32); CREATININE 1.1 mg/dL (0.55-1.3); GLUCOSE,RANDOM 89 mg/dL (74-106); POTASSIUM 3.9 mmol/L (3.5-5.1); SODIUM 140 mmol/L (136-145)
[2018-07-11] MEDS ORDERED: MECLIZINE HCL 25 MG TABLET (FP) PO ONE (22:39)
[2018-07-11] MEDS ORDERED: MECLIZINE HCL 25 MG TABLET (FP) ONE (22:43)
--- NOTE | 2018-07-11 23:00 | PDOC ---
History of Present Illness - General History Source: Patient Exam Limitations: No Limitations - History of Present Illness Initial Comments: 07/11/18 23:04 The patient is a 52 year old male with a significant past medical history of pulmonary fibrosis who presents to the emergency department with dizziness since earlier today. The patient states that he was at work earlier today when he felt a sudden onset of dizziness. The patient reports that he held on to his desk at work and the feeling went away. The patient states that his symptoms soon returned while walking to the elevator by which he syncopize and loss consciousness for about 5 minutes. He states that he felt the room spinning during his dizziness. The patient denies any chest pain, shortness of breath, or headache. He states that he has had similar episode in the past (2011). He denies any other symptoms or complaints. <Elizabeth Rojas - Last Filed: 07/11/18 23:04> <Hillary Garza - Last Filed: 07/12/18 00:28> - General Chief Complaint: Lightheaded Stated Complaint: DIZZINESS Time Seen by Provider: 07/11/18 21:28 Past History <Elizabeth Rojas - Last Filed: 07/11/18 23:04> - Past Medical History COPD: No (lung disease, PULMONARY FIBROSIS) - Immunization History Immunization Up to Date: Yes - Suicide/Smoking/Psychosocial Hx Smoking History: Never smoked Have you smoked in the past 12 months: No Hx Alcohol Use: No Drug/Substance Use Hx: No Substance Use Type: None <Hillary Garza - Last Filed: 07/12/18 00:28> - Past Medical History Allergies/Adverse Reactions: Allergies Allergy/AdvReac Type Severity Reaction Status Date / Time No Known Allergies Allergy Verified 07/11/18 20:08 Home Medications: Ambulatory Orders Gabapentin 600 mg PO BID #6 tablet 10/18/17 Oxycodone HCl/Acetaminophen [Endocet 10-325 mg Tablet] 1 each PO Q8H PRN #15 tablet MDD 3 tabs 10/18/17 Prednisone 5 mg PO DAILY 06/04/18 Review of Systems - Review of Systems Able to Perform ROS?: Yes Comments:: 07/11/18 23:06 CONSTITUTIONAL: Absent: fever, no chills, no fatigue EYES: Absent: visual changes ENT: Absent: ear pain, no sore throat CARDIOVASCULAR: Absent: chest pain, no palpitations RESPIRATORY: Absent: cough, no SOB GI: Absent: abdominal pain, no nausea, no vomiting, no constipation, no diarrhea GENITOURINARY: Absent: dysuria, no frequency, no hematuria MUSKULOSKELETAL: Absent: back pain, no arthralgia, no myalgia SKIN: Absent: rash NEURO: Absent: headache <Elizabeth Rojas - Last Filed: 07/11/18 23:04> *Physical Exam - Vital Signs Last Vital Signs Temp Pulse Resp BP Pulse Ox 97.6 F 69 20 146/66 98 07/11/18 20:08 07/11/18 20:08 07/11/18 20:08 07/11/18 20:08 07/11/18 20:08 - Physical Exam Comments: 07/11/18 23:04 GENERAL: Well-appearing, well-nourished. No apparent distress. HEENT: Normocephalic, atraumatic. PERRL, EOM intact. CARDIOVASCULAR: Normal S1, S2. Regular rate and rhythm. PULMONARY: Clear to auscultation bilaterally. ABDOMEN: Soft, non-distended, non-tender. EXTREMITIES: Normal ROM in all four extremities. No gross deformities. SKIN: Warm, dry. No rash NEUROLOGICAL: No focal neurological deficits. <Elizabeth Rojas - Last Filed: 07/11/18 23:04> - Vital Signs Last Vital Signs Temp Pulse Resp BP Pulse Ox 97.6 F 69 20 146/66 98 07/11/18 20:08 07/11/18 20:08 07/11/18 20:08 07/11/18 20:08 07/11/18 20:08 <Hillary Garza - Last Filed: 07/12/18 00:28> Moderate Sedation - Procedure Monitoring Vital Signs: Procedure Monitoring Vital Signs Temperature 97.6 F 07/11/18 20:08 Pulse Rate 69 07/11/18 20:08 Respiratory Rate 20 07/11/18 20:08 Blood Pressure 146/66 07/11/18 20:08 O2 Sat by Pulse Oximetry (%) 98 07/11/18 20:08 <Elizabeth Rojas - Last Filed: 07/11/18 23:04> - Procedure Monitoring Vital Signs: Procedure Monitoring Vital Signs Temperature 97.6 F 07/11/18 20:08 Pulse Rate 69 07/11/18 20:08 Respiratory Rate 20 07/11/18 20:08 Blood Pressure 146/66 07/11/18 20:08 O2 Sat by Pulse Oximetry (%) 98 07/11/18 20:08 <Hillary Garza - Last Filed: 07/12/18 00:28> ED Treatment Course - LABORATORY CBC & Chemistry Diagram: 07/11/18 20:29 07/11/18 20:29 - ADDITIONAL ORDERS Additional order review: Laboratory Results 07/11/18 20:29 Sodium 140 Potassium 3.9 Chloride 106 Carbon Dioxide 28 Anion Gap 7 L BUN 13 Creatinine 1.1 Creat Clearance w eGFR > 60 Random Glucose 89 Calcium 9.2 07/11/18 20:29 RBC 4.79 MCV 89.9 MCHC 34.5 RDW 13.2 MPV 7.9 Neutrophils % 64.2 Lymphocytes % 27.5 D Monocytes % 6.4 Eosinophils % 1.4 Basophils % 0.5 <Elizabeth Rojas - Last Filed: 07/11/18 23:04> - LABORATORY CBC & Chemistry Diagram: 07/11/18 20:29 07/11/18 20:29 - ADDITIONAL ORDERS Additional order review: Laboratory Results 07/11/18 20:29 Sodium 140 Potassium 3.9 Chloride 106 Carbon Dioxide 28 Anion Gap 7 L BUN 13 Creatinine 1.1 Creat Clearance w eGFR > 60 Random Glucose 89 Calcium 9.2 07/11/18 20:29 RBC 4.79 MCV 89.9 MCHC 34.5 RDW 13.2 MPV 7.9 Neutrophils % 64.2 Lymphocytes % 27.5 D Monocytes % 6.4 Eosinophils % 1.4 Basophils % 0.5 - RADIOLOGY Radiology Studies Ordered: Category Date Time Status HEAD CT WITHOUT CONTRAST [CT] Stat CT Scan 07/11/18 22:33 Ordered <Hillary Garza - Last Filed: 07/12/18 00:28> Medical Decision Making - Medical Decision Making 07/12/18 00:16 52 yo male had an episode of vertigo -he has no focal neuro deficits -ct scan head no acute intracranial pathology -ekg is nsr with no evidence of ischemia LABS reviewed and they are normal imp VERTIGO plan pt has an appt with neurology and MRI already planned this pt to take antivert as needed <Hillary Garza - Last Filed: 07/12/18 00:28> *DC/Admit/Observation/Transfer - Attestations Scribe Attestion: 07/11/18 23:05 Documentation prepared by Elizabeth Rojas, acting as medical records assistant for Hillary Garza MD. <Elizabeth Rojas - Last Filed: 07/11/18 23:04> <Hillary Garza - Last Filed: 07/12/18 00:28> Diagnosis at time of Disposition: Vertigo - Discharge Dispostion Disposition: HOME Condition at time of disposition: Stable - Referrals Referrals: Zac Pascal MD [Primary Care Provider] - - Patient Instructions Printed Discharge Instructions: DI for Vertigo Additional Instructions: P[LEASE KEEP YOUR APPOINTMENT THIS WEEK FOR THE MRI AND FOLLOW UP WITH YOUR DOCTOR TAKE MECLIZINE IF YOU HAVE REPEAT EPISODES - Post Discharge Activity
[2018-07-12 00:52] VITALS: BP 132/78; PULSE 88; TEMP 98.6
--- NOTE | 2018-07-12 09:55 | EKG ---
Test Reason : Blood Pressure : / mmHG Vent. Rate : 058 BPM Atrial Rate : 058 BPM P-R Int : 160 ms QRS Dur : 082 ms QT Int : 438 ms P-R-T Axes : 039 025 037 degrees QTc Int : 429 ms SINUS BRADYCARDIA OTHERWISE NORMAL ECG WHEN COMPARED WITH ECG OF 04-JUN-2018 12:30, NO SIGNIFICANT CHANGE WAS FOUND Confirmed by KEANU HUNTLEY MD ([id number]) on 07/12/2018 9:55:41 AM Referred By: Confirmed By:KEANU HUNTLEY MD
== END 2018-07-12 00:52 | disposition home or self-care (01) ==
LOC: JER 20:05
DX: R42 Dizziness and giddiness (principal); Z87.09 Personal history of other diseases of the respiratory system
CPT/HCPCS: 36415; 70450-TC; 80048; 85025; 93005; 93010; 99282-25

== ENCOUNTER 2018-10-10 14:40 | Emergency (ER) | payer OTHER ==
[2018-10-10 14:56] VITALS: BP 122/75; PULSE 76; TEMP 97.8; BMI 25.9
--- NOTE | 2018-10-10 14:57 | PDOC ---
Rapid Medical Evaluation Chief Complaint: Shortness of Breath Time Seen by Provider: 10/10/18 14:52 Medical Evaluation: Allergies Allergy/AdvReac Type Severity Reaction Status Date / Time No Known Allergies Allergy Verified 07/11/18 20:08 10/10/18 14:52 c/o fever 3 days ago now with throat pain, weakness and bodyaches and shortness of breath. history of interstitial lung disease Pe: patient alert ox3. breath sounds clear A; throat pain, malaise P: labs chest xray rapid strep Discharge Disposition - Diagnosis Shortness of breath, Throat pain - Referrals - Patient Instructions - Post Discharge Activity
[2018-10-10 15:19] LABS: BASO % 0.4 % (0-2.0); EOS % 2.1 % (0-4.5); HEMATOCRIT 42.6 % (35.4-49); HEMOGLOBIN 14.3 GM/dL (11.7-16.9); LYMPH % 19.4 % (8-40); MCH 30.8 pg (25.7-33.7); MCHC 33.6 g/dl (32.0-35.9); MEAN CELL VOLUME 91.5 fl (80-96); MEAN PLT VOLUME 7.7 fl (7.5-11.1); MONO % 5.4 % (3.8-10.2); NEUT % 72.7 % (42.8-82.8); PLATELET COUNT 238 K/MM3 (134-434); RBC 4.65 M/mm3 (4.00-5.60); RDW 12.9 % (11.9-15.9); WHITE BLOOD COUNT 12.3 K/mm3 (4.0-10.0)
[2018-10-10 15:54] LABS: ALBUMIN 3.8 g/dl (3.4-5.0); ALK PHOS 79 U/L (45-117); ANION GAP 4 MMOL/L (8-16); BILIRUBIN,TOTAL 0.3 mg/dL (0.2-1); BLOOD UREA NITROGEN 17 mg/dL (7-18); CALCIUM 9.5 mg/dL (8.5-10.1); CHLORIDE 107 mmol/L (98-107); CO2 28 mmol/L (21-32); CREATININE 1.1 mg/dL (0.55-1.3); GLUCOSE,RANDOM 98 mg/dL (74-106); POTASSIUM 4.3 mmol/L (3.5-5.1); SGOT/AST 34 U/L (15-37); SGPT/ALT 58 U/L (13-61); SODIUM 138 mmol/L (136-145)
--- NOTE | 2018-10-10 16:16 | PDOC ---
History of Present Illness - General Chief Complaint: Shortness of Breath Stated Complaint: SORE THROAT W/ BODY WEAKNESS Time Seen by Provider: 10/10/18 14:52 History Source: Patient Exam Limitations: Clinical Condition - History of Present Illness Initial Comments: 10/10/18 16:20 Patient with history of connective tissue disease and interstitial lung disease present with complaint of sore throat, body aches with fever for 3 days. Patient reported last fever 3 days ago. Patient reported feeling fatigued with pressure behind the eyes.Patient was in PCP office today and request to come to the ER for evaluation due to feeling fatigued and severe sore throat or reported painful to swallow. Should have follow-up appointment in 3 days with connective-tissue provider. Patient denies shortness of breath, chest pain, abdominal pain, nausea, vomiting or sweats. Timing/Duration: other (3 days) Past History - Past Medical History Allergies/Adverse Reactions: Allergies Allergy/AdvReac Type Severity Reaction Status Date / Time No Known Allergies Allergy Verified 07/11/18 20:08 Home Medications: Ambulatory Orders Prednisone 5 mg PO DAILY 06/04/18 Diclofenac Sodium [Voltaren] 2 gm TP TID PRN #3 tube 09/12/18 Gabapentin 600 mg PO Q8H #90 tablet 09/26/18 Oxycodone HCl/Acetaminophen [Percocet 10-325 mg Tablet] 1 each PO TID PRN #90 tablet MDD 3 09/26/18 Tens Units and Tens Electrodes [Ra Pain Relief Device] 1 each MC TID PRN #1 combo..pkg 09/26/18 Amox-Tr/K Cl [Augmentin - 875Mg Tablet] 1 tab PO BID #14 tablet 10/10/18 Methylprednisolone [Medrol Dose Matthew] 4 mg PO ASDIR #21 tablet 10/10/18 Cancer: No Cardiac Disorders: No CVA: No COPD: No (lung disease, PULMONARY FIBROSIS) CHF: No Dementia: No Diabetes: No GI Disorders: No Disorders: No HTN: No Hypercholesterolemia: No Liver Disease: No Seizures: No Thyroid Disease: No - Surgical History Lung Surgery: Yes (lung biopsy; history of tracheotomy) 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; right palm surgery for infections) - Immunization History Immunization Up to Date: Yes - Suicide/Smoking/Psychosocial Hx Smoking History: Never smoked Have you smoked in the past 12 months: No Information on smoking cessation initiated: No Hx Alcohol Use: No Drug/Substance Use Hx: No Substance Use Type: None Hx Substance Use Treatment: No Review of Systems - Review of Systems Able to Perform ROS?: Yes Is the patient limited Uzbek proficient: No Constitutional: Yes: Fever, Malaise, Weakness HEENTM: Yes: Symptoms Reported, See HPI, Throat Pain. No: Eye Pain, Blurred Vision, Tearing, Recent change in vision, Double Vision, Cataracts, Ear Pain, Ocular Prothesis, Ear Discharge, Nose Pain, Nose Congestion, Tinnitus, Nose Bleeding, Hearing Loss, Throat Swelling, Mouth Pain, Dental Problems, Difficulty Swallowing, Mouth Swelling, Other Respiratory: No: Symptoms reported, See HPI, Cough, Orthopnea, Shortness of Breath, SOB with Exertion, SOB at Rest, Stridor, Wheezing, Productive cough, Hemoptysis, Other Cardiac (ROS): No: Symptoms Reported, See HPI, Chest Pain, Edema, Irregular Heart Rate, Lightheadedness, Palpitations, Syncope, Chest Tightness, Other ABD/GI: Yes: See HPI. No: Constipated, Diarrhea, Nausea, Vomiting, Abdominal cramping Musculoskeletal: Yes: See HPI, Muscle Pain Integumentary: No: Rash All Other Systems: Reviewed and Negative *Physical Exam - Vital Signs Last Vital Signs Temp Pulse Resp BP Pulse Ox 97.8 F 76 20 122/75 99 10/10/18 14:52 10/10/18 14:52 10/10/18 14:52 10/10/18 14:52 10/10/18 14:52 - Physical Exam Comments: 10/10/18 16:12 GENERAL: Well developed, well nourished. Awake and alert. No acute distress. HEENT: Normocephalic, atraumatic. PERRLA, EOMI. No conjunctival pallor. Sclera are non-icteric. Moist mucous membranes. Oropharynx is clear. NECK: Supple. Full ROM. CARDIOVASCULAR: Regular rate and rhythm. No murmurs, rubs, or gallops. Distal pulses are 2+ and symmetric. PULMONARY: No evidence of respiratory distress. Lungs clear to auscultation bilaterally. No wheezing, rales or rhonchi. ABDOMINAL: Soft. Non-tender. Non-distended. No rebound or guarding. No organomegaly. Normoactive bowel sounds. MUSCULOSKELETAL Normal range of motion at all joints. SKIN: Warm and dry. Normal capillary refill. No rashes. No jaundice. NEUROLOGICAL: Alert, awake, appropriate. Gait is normal without ataxia. PSYCHIATRIC: Cooperative. Good eye contact. Appropriate mood General Appearance: Yes: Nourished, Appropriately Dressed. No: Apparent Distress ED Treatment Course - LABORATORY CBC & Chemistry Diagram: 10/10/18 15:01 10/10/18 15:01 - ADDITIONAL ORDERS Additional order review: Laboratory Results 10/10/18 15:01 Sodium 138 Potassium 4.3 Chloride 107 Carbon Dioxide 28 Anion Gap 4 L BUN 17 Creatinine 1.1 Creat Clearance w eGFR 70.57 Random Glucose 98 Calcium 9.5 Total Bilirubin 0.3 AST 34 ALT 58 Alkaline Phosphatase 79 Total Protein 8.0 Albumin 3.8 10/10/18 15:01 RBC 4.65 MCV 91.5 MCHC 33.6 RDW 12.9 MPV 7.7 Neutrophils % 72.7 Lymphocytes % 19.4 D Monocytes % 5.4 Eosinophils % 2.1 Basophils % 0.4 Medical Decision Making - Medical Decision Making 10/10/18 16:13 Patient with history of connective tissue disease and interstitial lung disease present with complaint of sore throat, body aches with fever for 3 days. Patient reported last fever 3 days ago. Patient reported feeling fatigued with pressure behind the eyes. CBC, CMP with no acute findings. Rapid strep negative. CXR ordered from [facility] but pt refused CXR Patient will be discharged home on Augmentin for week and Medrol Matthew for possible sinusitis and pharyngitis with PCP follow-up. Patient have follow-up appointment with connective tissue disease doctor in 3 days *DC/Admit/Observation/Transfer Diagnosis at time of Disposition: Throat pain Sinusitis Qualifiers: Sinusitis location: unspecified location Chronicity: acute Recurrence: non- recurrent Qualified Code(s): J01.90 - Acute sinusitis, unspecified Pharyngitis Qualifiers: Pharyngitis/tonsillitis etiology: unspecified etiology Qualified Code(s): J02.9 - Acute pharyngitis, unspecified - Discharge Dispostion Disposition: HOME Condition at time of disposition: Stable Decision to Admit order: No - Prescriptions Prescriptions: Amox-Tr/K Cl [Augmentin - 875Mg Tablet] 1 tab PO BID #14 tablet Methylprednisolone [Medrol Dose Matthew] 4 mg PO ASDIR #21 tablet - Referrals Referrals: Zac Pascal MD [Primary Care Provider] - - Patient Instructions Printed Discharge Instructions: DI for Sinusitis Additional Instructions: labs shows no abnormality. Strep test was negative. Take prescribed medications as prescribed and increase fluid intake. Come back to ED if shortness of breathe , worsening weakness - Post Discharge Activity Forms/Work/School Notes: Back to Work
== END 2018-10-10 16:24 | disposition home or self-care (01) ==
LOC: JERFT 14:40
DX: J02.9 Acute pharyngitis, unspecified (principal); J01.90 Acute sinusitis, unspecified; Z87.09 Personal history of other diseases of the respiratory system; Z87.39 Personal history of other diseases of the musculoskeletal system and connective tissue
CPT/HCPCS: 36415; 80053; 85025; 87070; 87880; 99281-25

== ENCOUNTER 2018-12-06 12:39 | Emergency (ER) | payer OTHER | END 2018-12-06 13:31 | disposition home or self-care (01) | LOC: JERFT 12:39 ==

== ENCOUNTER 2019-03-14 13:35 | Emergency (ER) | payer OTHER ==
[2019-03-14 13:39] VITALS: TEMP 98.2; BMI 25.1
[2019-03-14] MEDS ORDERED: MECLIZINE HCL 25 MG TABLET (FP) PO ONE (14:30)
--- NOTE | 2019-03-14 14:35 | PDOC ---
History of Present Illness - General Chief Complaint: Lightheaded Stated Complaint: DIZZNESS Time Seen by Provider: 03/14/19 14:06 - History of Present Illness Initial Comments: 03/14/19 14:34 53M with pmh of vertigo and pulmonary fibrosis presents to the ED with 3 days of intermittent vertigo worsened by sudden movements. He has been complaining of 5min-long episode of dizziness with room spinning for the past 3 days, twice a day, consistent with his usual vertigo. He used to be treated with Meclizine which worked well but ran out. Did not follow up with Neurologist. Past History - Past Medical History Allergies/Adverse Reactions: Allergies Allergy/AdvReac Type Severity Reaction Status Date / Time No Known Allergies Allergy Verified 03/14/19 13:39 Home Medications: Ambulatory Orders Prednisone 2.5 mg PO DAILY 06/04/18 Tens Units and Tens Electrodes [Ra Pain Relief Device] 1 each MC TID PRN #1 combo..pkg 09/26/18 Acetaminophen [Extra Strength Non-Aspirin] 500 mg PO BID PRN #60 tablet Calcium Carbonate/Vitamin D3 [Calcium 600 + Vit D Tablet] 1 each PO DAILY #30 tablet 11/15/18 Diclofenac Sodium [Voltaren] 2 gm TP TID PRN #3 tube 01/25/19 Gabapentin 600 mg PO Q8H #90 tablet 01/25/19 Yee [place]/Linoleic/Gamoleni [Evening [place] 1,000 mg Sftg] 1,000 mg PO BID #60 capsule 02/27/19 Oxycodone HCl/Acetaminophen [Percocet 10-325 mg Tablet] 1 each PO TID PRN #90 tablet MDD 3 02/27/19 Vitamin B Complex 1 each PO DAILY #30 capsule 02/27/19 Vitamin E - 400 unit PO DAILY #30 capsule 02/27/19 Meclizine HCl [Antivert -] 25 mg PO TID #90 tablet 03/14/19 Cancer: No Cardiac Disorders: No CVA: No COPD: No (lung disease, PULMONARY FIBROSIS) CHF: No Dementia: No Diabetes: No GI Disorders: No Disorders: No HTN: No Hypercholesterolemia: No Liver Disease: No Seizures: No Thyroid Disease: No Other medical history: Vertigo - Surgical History Lung Surgery: Yes (lung biopsy; history of tracheotomy) 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; right palm surgery for infections) - Immunization History Immunization Up to Date: Yes - Suicide/Smoking/Psychosocial Hx Smoking History: Never smoked Have you smoked in the past 12 months: No Information on smoking cessation initiated: No Hx Alcohol Use: No Drug/Substance Use Hx: No Substance Use Type: None Hx Substance Use Treatment: No Review of Systems - Review of Systems Able to Perform ROS?: Yes Is the patient limited Estonian proficient: No Constitutional: No: Symptoms Reported HEENTM: No: Symptoms Reported Respiratory: No: Symptoms reported Cardiac (ROS): No: Symptoms Reported ABD/GI: No: Symptoms Reported : No: Symptoms Reported Musculoskeletal: No: Symptoms Reported Integumentary: No: Symptoms Reported Neurological: Yes: Symptoms reported, See HPI All Other Systems: Reviewed and Negative *Physical Exam - Vital Signs Last Vital Signs Temp Pulse Resp BP Pulse Ox 98.2 F 68 19 140/78 98 03/14/19 13:38 03/14/19 13:38 03/14/19 13:38 03/14/19 13:38 03/14/19 13:38 - Physical Exam General Appearance: Yes: Nourished, Appropriately Dressed. No: Apparent Distress HEENT: positive: EOMI, MANNY, Normal ENT Inspection Respiratory/Chest: positive: Lungs Clear, Normal Breath Sounds. negative: Chest Tender, Respiratory Distress Cardiovascular: positive: Regular Rhythm, Regular Rate, S1, S2 Gastrointestinal/Abdominal: positive: Normal Bowel Sounds, Flat, Soft. negative : Tender Extremity: positive: Normal Capillary Refill, Normal Inspection, Normal Range of Motion Integumentary: positive: Normal Color, Dry, Warm Neurologic: positive: Fully Oriented, Alert, Normal Mood/Affect, Normal Response , Motor Strength 5/5, Other (normal cerebellar exam). negative: EOM Palsy, Facial Droop, Numbness, Sensory Deficit, Finger to Nose, Confused, Disoriented, Depressed Affect ED Treatment Course - LABORATORY CBC & Chemistry Diagram: 03/14/19 15:21 03/14/19 14:43 Medical Decision Making - Medical Decision Making 03/14/19 14:36 53M with h/o vertigo and pulmonary fibrosis. EKG: Sinus Bradycardia, other normal, unchanged from last one. Likely repeat vertigo but will make sure this isn't cardiogenic, low suspiscion for cerebellar stroke as cerebellar exam is normal. Low suspicion for arrhythmia too but will check trops. 03/14/19 15:16 03/14/19 16:36 All labs WNL will reassess for resolution of symptoms. 03/14/19 16:51 Patient feeling at baseline. No more symptoms. Ok to discharge with neurology follow up and Meclizine prescription. *DC/Admit/Observation/Transfer Diagnosis at time of Disposition: Vertigo - Discharge Dispostion Disposition: HOME Condition at time of disposition: Improved Decision to Admit order: No - Prescriptions Prescriptions: Meclizine HCl [Antivert -] 25 mg PO TID #90 tablet - Referrals Referrals: Zac Pascal MD [Primary Care Provider] - Herbert Wong MD [Staff Physician] - Elsie Aragon MD [Staff Physician] - Sean Brian MD [Staff Physician] - Quinn Pittman MD [Staff Physician] - Zachariah Merida DO [Staff Physician] - - Patient Instructions Printed Discharge Instructions: Benign Paroxysmal Positional Vertigo, How to Perform [place] Vertigo Exercises Additional Instructions: Come back to the emergency department for any new, worsening or concerning symptoms. Follow up with any of the neurologists provided here. extension service supervisor your prescription at the pharmacy. - Post Discharge Activity
[2019-03-14] MEDS ORDERED: MECLIZINE HCL 25 MG TABLET (FP) ONE (14:44)
[2019-03-14 15:36] LABS: BASO % 0.4 % (0-2.0); EOS % 1.9 % (0-4.5); HEMOGLOBIN 13.5 GM/dL (11.7-16.9); MCH 30.5 pg (25.7-33.7); MCHC 33.9 g/dl (32.0-35.9); MEAN CELL VOLUME 90.1 fl (80-96); MEAN PLT VOLUME 7.6 fl (7.5-11.1); MONO % 4.7 % (3.8-10.2); PLATELET COUNT 223 K/MM3 (134-434); RBC 4.43 M/mm3 (4.00-5.60); RDW 12.7 % (11.9-15.9); WHITE BLOOD COUNT 8.5 K/mm3 (4.0-10.0)
--- NOTE | 2019-03-14 16:05 | PDOC ---
Documentation entered by Kandi Quinn SCRIBE, acting as scribe for Florence Vincent MD. Florence Vincent MD: This documentation has been prepared by the [place] Adrianna, SCRIBE, under my direction and personally reviewed by me in its entirety. I confirm that the documentation accurately reflects all work, treatment, procedures, and medical decision making performed by me. Attending Attestation - Resident Resident Name: Alen Walsh - ED Attending Attestation I have performed the following: I have examined & evaluated the patient, The case was reviewed & discussed with the resident, I agree w/resident's findings & plan, Exceptions are as noted - HPI HPI: The patient is a 53 year old male, with a significant PMH of vertigo and pulmonary fibrosis, who presents to the ED for evaluation of vertigo for 3 days. Patient is typically on Meclizine for his vertigo, but he has run out and has been unable to follow up with his neurologist. He notes his vertigo returned 3 days ago, which he describes as room-spinning dizziness. His vertigo is exacerbated with bending over or sudden movements. Allergies: NKA, NKDA Surgical History: lung biopsy, tracheostomy, left index finger amputation, right palm surgery (2/2 infection) PCP: Dr. Pascal - Physicial Exam PE: GENERAL: The patient is in no acute distress. ENT: Ears normal, nares patent, oropharynx clear without exudates. Moist mucous membranes. NECK: Normal range of motion, supple, no nuchal rigidity LUNGS: Breath sounds equal, clear to auscultation bilaterally. No wheezes, and no crackles. HEART: Regular rate and rhythm, normal S1 and S2 without murmur, rub or gallop. ABDOMEN: Soft, nontender, normoactive bowel sounds. No guarding, no rebound. No masses palpable. EXTREMITIES: Normal range of motion, no edema. NEUROLOGICAL: Cranial nerves II through XII grossly intact. Normal speech. No focal neurological deficits. SKIN: Warm, Dry, normal turgor, no rashes or lesions noted. - Medical Decision Making 03/14/19 14:55 Mr. Garcia is a 53 yo M h/o vertigo and pulmonary fibrosis who presents to the ED with 3 days of intermittent vertigo worsened by sudden movements or looking down. The patient was previously treated with Meclizine (which worked) but he ran out of his medications He has not followed up No head trauma No fevers or chills No weakness Will do: Basic labs Meclizine Re Assess D/c EKG: SR rate of 58 bpm, axis nml, intervals nml, no st elevation or depression, t waves upright 03/14/19 16:05 Laboratory Tests 03/14/19 15:21 WBC 8.5 Hgb 13.5 Hct 40.0 Plt Count 223 03/14/19 16:44 Laboratory Tests 03/14/19 03/14/19 14:43 14:43 BUN 18.6 H Creatinine 1.0 Troponin I < 0.02 Lightheadedness improved Will discharge to home Pt should follow up with Neuro
[2019-03-14 16:08] LABS: ALBUMIN 3.6 g/dl (3.4-5.0); BILIRUBIN,TOTAL 0.3 mg/dL (0.2-1); BLOOD UREA NITROGEN 18.6 mg/dL (7-18); CALCIUM 9.2 mg/dL (8.5-10.1); POTASSIUM 4.1 mmol/L (3.5-5.1); TOT PROT 7.3 g/dl (6.4-8.2)
[2019-03-14 17:10] VITALS: BP 129/82; PULSE 60
--- NOTE | 2019-03-15 14:09 | EKG ---
Test Reason : Blood Pressure : / mmHG Vent. Rate : 058 BPM Atrial Rate : 058 BPM P-R Int : 146 ms QRS Dur : 084 ms QT Int : 420 ms P-R-T Axes : 047 016 026 degrees QTc Int : 412 ms SINUS BRADYCARDIA OTHERWISE NORMAL ECG WHEN COMPARED WITH ECG OF 11-JUL-2018 23:05, NO SIGNIFICANT CHANGE WAS FOUND Confirmed by RADHA DE ANDA MD ([id number]) on 03/15/2019 2:09:08 PM Referred By: Confirmed By:RADHA DE ANDA MD
== END 2019-03-14 17:10 | disposition home or self-care (01) ==
LOC: JER 13:35
DX: H81.10 Benign paroxysmal vertigo, unspecified ear (principal); J84.10 Pulmonary fibrosis, unspecified
CPT/HCPCS: 36415; 80053; 84484; 85025; 93005; 93010; 99283-25

== ENCOUNTER 2019-06-27 16:39 | Emergency (ER) | payer OTHER ==
[2019-06-27 16:46] VITALS: BP 115/71; PULSE 80; TEMP 97.8; BMI 25.8
--- NOTE | 2019-06-27 16:48 | PDOC ---
Rapid Medical Evaluation Chief Complaint: Cold Symptoms Time Seen by Provider: 06/27/19 16:42 Medical Evaluation: Allergies Allergy/AdvReac Type Severity Reaction Status Date / Time No Known Allergies Allergy Verified 03/14/19 13:39 Vital Signs Temp Pulse Resp BP Pulse Ox 97.8 F 80 16 115/71 100 06/27/19 16:44 06/27/19 16:44 06/27/19 16:44 06/27/19 16:44 06/27/19 16:44 06/27/19 16:47 Pt c/o: sore throat, nasal congestion cough, hx pulm fibrosis pt on brief exam: vss, lcta, no rhinorrhea Pt ordered for: none pt to proceed to the ED 06/27/19 16:48 Discharge Disposition - Diagnosis Cough - Discharge Dispostion Condition at time of disposition: Stable - Referrals - Patient Instructions - Post Discharge Activity
--- NOTE | 2019-06-27 17:04 | PDOC ---
History of Present Illness - General Chief Complaint: Cold Symptoms Stated Complaint: COLD/FLU SYMPTOMS Time Seen by Provider: 06/27/19 16:42 History Source: Patient Exam Limitations: Clinical Condition - History of Present Illness Initial Comments: 06/27/19 17:16 Patient with past medical history of interstitial lung disease on pulmonary therapy presented with complaint of high fever 107 F overnight which started suddenly last night with chills. Patient reported gave him Tylenol overnight for fever. Patient also reported nasal congestion and throat discomfort. Reported mild pain when he swallows. Patient reported last time he had a high fever and ended up in a coma due to interstitial disease. Denies any cough now, shortness of breath, chest pain, sick contacts or recent travel. Patient report last Tylenol earlier this morning. Denies nausea, vomiting. Denies any other symptoms Is this a multiple visit Asthma Patient?: No Timing/Duration: 24 hours Associated Symptoms: reports: fever/chills Past History - Past Medical History Allergies/Adverse Reactions: Allergies Allergy/AdvReac Type Severity Reaction Status Date / Time No Known Allergies Allergy Verified 03/14/19 13:39 Home Medications: Ambulatory Orders Prednisone 2.5 mg PO DAILY 06/04/18 Tens Units and Tens Electrodes [Ra Pain Relief Device] 1 each MC TID PRN #1 combo..pkg 09/26/18 Diclofenac Sodium [Voltaren] 2 gm TP TID PRN #3 tube 01/25/19 Yee [place]/Linoleic/Gamoleni [Evening [place] 1,000 mg Sftg] 1,000 mg PO BID #60 capsule 02/27/19 Vitamin B Complex 1 each PO DAILY #30 capsule 02/27/19 Vitamin E - 400 unit PO DAILY #30 capsule 02/27/19 Calcium Carbonate/Vitamin D3 [Calcium 600 + Vit D Tablet] 1 each PO DAILY #30 tablet 04/02/19 Acetaminophen [Mapap] 500 mg PO TID PRN #90 tablet 05/02/19 Gabapentin 600 mg PO Q8H #90 tablet 05/30/19 Oxycodone HCl/Acetaminophen [Percocet 10-325 mg Tablet] 1 each PO TID PRN #60 tablet MDD 3 05/30/19 Benzonatate [Tessalon Pearls -] 100 mg PO Q8H PRN #20 capsule 06/27/19 Ipratropium Parker 2 spray NS BID PRN 5 Days #1 spray 06/27/19 Montelukast Na [Singulair -] 10 mg PO HS #7 tablet 06/27/19 Cancer: No Cardiac Disorders: No CVA: No COPD: No (lung disease, PULMONARY FIBROSIS) CHF: No Dementia: No Diabetes: No GI Disorders: No Disorders: No HTN: No Hypercholesterolemia: No Liver Disease: No Seizures: No Thyroid Disease: No - Surgical History Lung Surgery: Yes (lung biopsy; history of tracheotomy) 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; right palm surgery for infections) - Immunization History Immunization Up to Date: Yes - Psycho Social/Smoking Cessation Hx Smoking History: Never smoked Have you smoked in the past 12 months: No Information on smoking cessation initiated: No Hx Alcohol Use: No Drug/Substance Use Hx: No Substance Use Type: None Hx Substance Use Treatment: No Review of Systems - Review of Systems Able to Perform ROS?: Yes Is the patient limited Icelandic proficient: No Constitutional: Yes: Chills, Fever HEENTM: Yes: Symptoms Reported, See HPI, Nose Congestion, Throat Pain. No: Eye Pain, Blurred Vision, Tearing, Recent change in vision, Double Vision, Cataracts , Ear Pain, Ocular Prothesis, Ear Discharge, Nose Pain, Tinnitus, Nose Bleeding , Hearing Loss, Throat Swelling, Mouth Pain, Dental Problems, Difficulty Swallowing, Mouth Swelling, Other Respiratory: No: Symptoms reported, See HPI, Cough, Orthopnea, Shortness of Breath, SOB with Exertion, SOB at Rest, Stridor, Wheezing, Productive cough, Hemoptysis, Other Cardiac (ROS): No: Symptoms Reported, See HPI, Chest Pain, Edema, Irregular Heart Rate, Lightheadedness, Palpitations, Syncope, Chest Tightness, Other ABD/GI: No: Symptoms Reported, See HPI, Nausea, Vomiting Musculoskeletal: No: Symptoms Reported Integumentary: No: Symptoms Reported, Rash Neurological: No: Symptoms reported, Dizziness All Other Systems: Reviewed and Negative *Physical Exam - Vital Signs Last Vital Signs Temp Pulse Resp BP Pulse Ox 97.8 F 80 16 115/71 100 06/27/19 16:44 06/27/19 16:44 06/27/19 16:44 06/27/19 16:44 06/27/19 16:44 - Physical Exam 06/27/19 17:03 GENERAL: Well developed, well nourished. Awake and alert. No acute distress. HEENT: Normocephalic, atraumatic. PERRLA, EOMI. No conjunctival pallor. Sclera are non-icteric. Moist mucous membranes. Oropharynx is clear. NECK: Supple. Full ROM. CARDIOVASCULAR: Regular rate and rhythm. No murmurs, rubs, or gallops. Distal pulses are 2+ and symmetric. PULMONARY: No evidence of respiratory distress. Lungs clear to auscultation bilaterally. No wheezing, rales or rhonchi. ABDOMINAL: Soft. Non-tender. Non-distended. No rebound or guarding. No organomegaly. Normoactive bowel sounds. MUSCULOSKELETAL Normal range of motion at all joints. SKIN: Warm and dry. Normal capillary refill. No rashes. No cyanosis. NEUROLOGICAL: Alert, awake, appropriate. Gait is normal without ataxia. PSYCHIATRIC: Cooperative. Good eye contact. Appropriate mood General Appearance: Yes: Nourished, Appropriately Dressed. No: Apparent Distress Medical Decision Making - Medical Decision Making 06/27/19 17:18 Patient with past medical history of interstitial lung disease on pulmonary therapy presented with complaint of high fever 107 F overnight which started suddenly last night with chills. Patient reported gave him Tylenol overnight for fever. Patient also reported nasal congestion and throat discomfort. Reported mild pain when he swallows. Patient reported last time he had a high fever and ended up in a coma due to interstitial disease. Denies any cough now, shortness of breath, chest pain, sick contacts or recent travel. Patient report last Tylenol earlier this morning. Denies nausea, vomiting. Denies any other symptoms Clinical exam unremarkable with lungs clear to auscultation bilateral and no pharyngeal erythema . Patient afebrile. Given patient complaint of high fevers and sore throat, will rule out flu and strep. Patient be discharged home on nasal spray as needed for nasal congestion with advised to take antipyretic as needed for fever if fever returns with strict follow-up if negative strep and flu 06/27/19 18:09 Rapid strep rapid flu negative. Patient symptoms likely viral URI and stable for outpatient management Tessalon Perles as needed for cough and nasal spray for congestion with PCP follow-up Discharge - Discharge Information Problems reviewed: Yes Clinical Impression/Diagnosis: Cough, Viral URI with cough Condition: Stable Disposition: HOME - Admission No - Additional Discharge Information Prescriptions: Benzonatate [Tessalon Pearls -] 100 mg PO Q8H PRN #20 capsule PRN Reason: Cough Ipratropium [place] 2 spray NS BID PRN 5 Days #1 spray PRN Reason: nasal congestion Montelukast Na [Singulair -] 10 mg PO HS #7 tablet - Follow up/Referral Referrals: Zac Pascal MD [Primary Care Provider] - - Patient Discharge Instructions Patient Printed Discharge Instructions: DI for Viral Upper Respiratory Infection -- Adult Additional Instructions: Strep and flu test is negative. Your symptoms likely caused by viral infection. To prescribe medication as prescribed for cough and congestion. Follow-up with your primary care. Come back to emergency room immediately if high fever comes back - Post Discharge Activity
== END 2019-06-27 18:14 | disposition home or self-care (01) ==
LOC: JERFT 16:39
DX: J06.9 Acute upper respiratory infection, unspecified (principal); B97.89 Other viral agents as the cause of diseases classified elsewhere; R05 Cough
CPT/HCPCS: 87070; 87804; 87880; 99281-25

== ENCOUNTER 2019-08-01 09:45 | Emergency (ER) | payer OTHER ==
[2019-08-01 09:56] VITALS: BP 142/76; PULSE 77; TEMP 97.7; BMI 25.9
[2019-08-01] MEDS ORDERED: oxyCODONE HCL 5 MG TABLET PO ONE (10:12)
--- NOTE | 2019-08-01 10:18 | PDOC ---
History of Present Illness - General Chief Complaint: Back Pain Stated Complaint: LWR BACK PAIN Time Seen by Provider: 08/01/19 10:07 History Source: Patient Exam Limitations: No Limitations - History of Present Illness Initial Comments: 08/01/19 10:14 Patient is a 53-year-old male who presents to the ED stating that he missed his appointment with his pain management doctor and he ran out of his oxycodone tablets yesterday. He states he took his last dose yesterday. He states he takes 10 mg of oxycodone twice daily. He missed his pain management appointment yesterday and does not have another appointment until Tuesday. He denies any new complaints. He states he has chronic low back pain and has been on the oxycodone for many years. He denies any changes in bowel or bladder habits. He denies any new complaints. Past History - Past Medical History Allergies/Adverse Reactions: Allergies Allergy/AdvReac Type Severity Reaction Status Date / Time No Known Allergies Allergy Verified 08/01/19 09:52 Home Medications: Ambulatory Orders Prednisone 2.5 mg PO DAILY 06/04/18 Tens Units and Tens Electrodes [Ra Pain Relief Device] 1 each MC TID PRN #1 combo..pkg 09/26/18 Diclofenac Sodium [Voltaren] 2 gm TP TID PRN #3 tube 01/25/19 [place]ee [place]/Linoleic/Gamoleni [[place] 1,000 mg Sftg] 1,000 mg PO BID #60 capsule 02/27/19 Vitamin B Complex 1 each PO DAILY #30 capsule 02/27/19 Vitamin E - 400 unit PO DAILY #30 capsule 02/27/19 Calcium Carbonate/Vitamin D3 [Calcium 600 + Vit D Tablet] 1 each PO DAILY #30 tablet 04/02/19 Acetaminophen [Mapap] 500 mg PO TID PRN #90 tablet 05/02/19 Gabapentin 600 mg PO Q8H #90 tablet 05/30/19 Ipratropium [place] 2 spray NS BID PRN 5 Days #1 spray 06/27/19 Montelukast Na [Singulair -] 10 mg PO HS #7 tablet 06/27/19 Methocarbamol [Robaxin-750] 750 mg PO BID PRN #30 tablet 07/02/19 Oxycodone HCl/Acetaminophen [Percocet 10-325 mg Tablet] 1 each PO TID PRN #60 tablet MDD 3 07/02/19 Triamcinolone 0.1% Ointment [Aristocort 0.1% Ointment -] 1 applic TP BID Cancer: No Cardiac Disorders: No CVA: No COPD: No (lung disease, PULMONARY FIBROSIS) CHF: No Dementia: No Diabetes: No GI Disorders: No Disorders: No HTN: No Hypercholesterolemia: No Liver Disease: No Seizures: No Thyroid Disease: No - Surgical History Lung Surgery: Yes (lung biopsy; history of tracheotomy) 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; right palm surgery for infections) - Immunization History Immunization Up to Date: Yes - Psycho Social/Smoking Cessation Hx Smoking History: Never smoked Have you smoked in the past 12 months: No Hx Alcohol Use: No Drug/Substance Use Hx: No Substance Use Type: None Hx Substance Use Treatment: No Review of Systems - Review of Systems Comments:: 08/01/19 10:15 - Review of Systems Able to Perform ROS?: Yes Constitutional: No: Fever, Chills, Loss of Appetite, Night Sweats, Weakness Respiratory: No: Cough, Shortness of Breath, Wheezing, Sputum Production Cardiac (ROS): No: Chest Pain, Chest Tightness, Palpitations, Irregular Heart Beat, Edema ABD/GI: No: Nausea, Vomiting, Abdominal Pain, Diarrhea : No Dysuria, No Hematuria, No Frequency, No Urgency, No Vaginal Discharge/ Pain, No Penile Discharge/Pain Musculoskeletal: No: Muscle Pain, Joint Pain, Muscle Weakness, Neck Pain; Positive chronic low back pain Integumentary: No: Lesions, Rash Neurological: No: Headache, Numbness, Tingling, Weakness, Speech Difficulties *Physical Exam - Vital Signs Last Vital Signs Temp Pulse Resp BP Pulse Ox 97.7 F 77 18 142/76 99 08/01/19 09:53 08/01/19 09:53 08/01/19 09:53 08/01/19 09:53 08/01/19 09:53 - Physical Exam 08/01/19 10:15 - Physical Exam General Appearance: Nourished, Appropriately Dressed, No Distress; Patient not in extremis HEENT: EOMI, Normal Voice, No Muffled/Hoarse voice, No Nasal Congestion, No Rhinorrhea, Hearing Grossly Normal Neck: Supple, No Decreased range of motion Respiratory/Chest: Lungs Clear, Normal Breath Sounds. No Respiratory Distress, No Accessory Muscle Use Cardiovascular: Regular Rhythm, Regular Rate, S1, S2 Musculoskeletal: Normal Inspection. Diffuse low back tenderness to palpation including in the midline. Strength 5/5 bilateral lower extremities. Sensation equal to light touch bilateral lower extremities. EHL intact bilateral. Extremity: Normal Capillary Refill, Normal Inspection Integumentary: Normal Color, Dry. No Rash Neurologic: machine cutter II-XII NML intact, Fully Oriented, Alert, Normal Mood/Affect, Normal Response Medical Decision Making - Medical Decision Making 08/01/19 10:17 Assessment: Patient is a 53-year-old male with chronic low back pain who ran out of his chronic narcotic pain medication. Plan: -The patient has been made aware that we are unable to prescribe him this medication as he gets it from a pain management doctor and he must follow-up with his pain management doctor. -A single dose of his pain medication has been given to him in the ED today. Discharge - Discharge Information Problems reviewed: Yes Clinical Impression/Diagnosis: Chronic back pain Qualifiers: Back pain location: low back pain Back pain laterality: bilateral Sciatica presence: without sciatica Qualified Code(s): M54.5 - Low back pain; G89.29 - Other chronic pain Condition: Stable Disposition: HOME - Follow up/Referral - Patient Discharge Instructions Patient Printed Discharge Instructions: DI for Low Back Pain, Managing Chronic Low Back Pain Additional Instructions: Be sure to follow-up with your pain management doctor as soon as possible for a refill on your pain medication. Return to the emergency department for change of bowel or bladder habits, severe or worsening low back pain, numbness or tingling or any other worsening symptoms. - Post Discharge Activity Work/Back to School Note: Back to Work
[2019-08-01] MEDS ORDERED: oxyCODONE HCL 5 MG TABLET ONE (10:19)
== END 2019-08-01 10:22 | disposition home or self-care (01) ==
LOC: JERFT 09:45
DX: M54.5 Low back pain (principal); G89.29 Other chronic pain
CPT/HCPCS: 99282-25

== ENCOUNTER 2020-07-24 11:43 | Emergency (ER) | payer OTHER | END 2020-07-24 12:01 | disposition home or self-care (01) | LOC: JVIRT 11:43 | DX: U07.1 COVID-19 (principal) | CPT/HCPCS: G2251-GT; Q3014-GT ==

== ENCOUNTER 2020-07-25 10:20 | Emergency (ER) | payer OTHER ==
[2020-07-25 10:36] VITALS: BMI 25.9
[2020-07-25] MEDS ORDERED: BAMLANIVIMAB 700 MG in SODIUM CHLORIDE 180 ML IVPB ONE (10:47)
[2020-07-25 12:50] LABS: BASO % 0.3 % (0-2.0); EOS % 1.9 % (0-4.5); HEMATOCRIT 42.6 % (35.4-49); HEMOGLOBIN 14.3 GM/dL (11.7-16.9); LYMPH % 32.8 % (8-40); MCH 30.9 pg (25.7-33.7); MCHC 33.6 g/dl (32.0-35.9); MEAN PLT VOLUME 8.1 fl (7.5-11.1); MONO % 9.9 % (3.8-10.2); NEUT % 55.1 % (42.8-82.8); PLATELET COUNT 206 K/MM3 (134-434); RBC 4.63 M/mm3 (4.00-5.60); WHITE BLOOD COUNT 5.5 K/mm3 (4.0-10.0)
[2020-07-25 13:15] LABS: POTASSIUM 4.4 mmol/L (3.5-5.1)
[2020-07-25 13:17] LABS: ALBUMIN 3.8 g/dl (3.4-5.0); CALCIUM 8.8 mg/dL (8.5-10.1)
[2020-07-25 13:20] LABS: CREATININE 1.1 mg/dL (0.55-1.3)
[2020-07-25 13:22] LABS: BILIRUBIN,TOTAL 0.3 mg/dL (0.2-1); TOT PROT 8.2 g/dl (6.4-8.2)
[2020-07-25 14:30] VITALS: BP 147/73; PULSE 48; TEMP 97.3
== END 2020-07-25 18:06 | disposition home or self-care (01) ==
LOC: JCOVINFU 10:20 → JER 10:20 → JCOVINFU 18:06
PROC: 3E033NZ Introduction of Analgesics, Hypnotics, Sedatives into Peripheral Vein, Percutaneous Approach (ICD-10-PCS; principal; 2020-07-25)
DX: U07.1 COVID-19 (principal)
CPT/HCPCS: 36415; 80053; 85025; 99284-25; M0239; Q0239

== ENCOUNTER 2023-04-05 04:40 | Day surgery (SDC) | payer OTHER ==
[2023-03-23 11:16] VITALS: BMI 23.8
[2023-04-05 11:51] VITALS: TEMP 97
[2023-04-05 12:41] VITALS: BP 117/71; PULSE 60; RESP 17
== END 2023-04-05 12:41 | disposition home or self-care (01) ==
LOC: JASU-ENDO 04:40
PROVIDERS: ATTEND Internal Medicine Gastroenterology
PROC: 0DJD8ZZ Inspection of Lower Intestinal Tract, Via Natural or Artificial Opening Endoscopic (ICD-10-PCS; principal; 2023-04-05 10:30)
DX: Z12.11 Encounter for screening for malignant neoplasm of colon (principal); K64.8 Other hemorrhoids

== ENCOUNTER 2023-06-15 09:58 | Day surgery (SDC) | payer OTHER ==
[2023-06-15 11:11] VITALS: TEMP 97.3
[2023-06-15 11:47] VITALS: BMI 23.8
[2023-06-15 11:52] VITALS: BP 134/78; PULSE 63; RESP 17
== END 2023-06-15 11:52 | disposition home or self-care (01) ==
LOC: JASU-ENDO 09:58
PROVIDERS: ATTEND Internal Medicine Gastroenterology
PROC: 0DB78ZX Excision of Stomach, Pylorus, Via Natural or Artificial Opening Endoscopic, Diagnostic (ICD-10-PCS; 2023-06-15)
PROC: 0DB68ZX Excision of Stomach, Via Natural or Artificial Opening Endoscopic, Diagnostic (ICD-10-PCS; principal; 2023-06-15 11:15)
DX: K29.50 Unspecified chronic gastritis without bleeding (principal)

== ENCOUNTER 2024-01-09 13:40 | Emergency (ER) | payer OTHER ==
[2024-01-09 13:54] VITALS: RESP 18; TEMP 98; BMI 24.2
[2024-01-09] MEDS ORDERED: morphine SULFATE 4 MG/ML VIAL ONE ×2 (14:19→17:12)
[2024-01-09] MEDS: morphine CARPU-JECT 4 MG/1 ML DISP.SYRIN IVPUSH ONE ×2 (14:49→17:05)
[2024-01-09] MEDS: SODIUM CHLORIDE 0.9% 500 ML INFUS.BAG IV ONE (14:54)
[2024-01-09 14:56] LABS: BASO % 0.4 % (0-2.0); EOS % 2.5 % (0-4.5); HEMATOCRIT 42.1 % (35.4-49); HEMOGLOBIN 14.1 GM/dL (11.7-16.9); LYMPH % 20.4 % (8-40); MCH 29.5 pg (25.7-33.7); MCHC 33.4 g/dl (32.0-35.9); MEAN CELL VOLUME 88.2 fl (80-96); MONO % 6.2 % (3.8-10.2); NEUT % 70.5 % (42.8-82.8); PLATELET COUNT 265 10^3/uL (134-434); RBC 4.77 M/mm3 (4.00-5.60); RDW 14.2 % (11.9-15.9); WHITE BLOOD COUNT 9.4 K/mm3 (4.0-10.0)
[2024-01-09 15:02] LABS: INR 1.11 (0.83-1.09); PROTHROMBIN TIME (PATIENT) 12.5 SEC (9.7-13.0)
[2024-01-09 15:26] LABS: POTASSIUM 4.8 mmol/L (3.5-5.1)
[2024-01-09 15:28] LABS: CALCIUM 9.7 mg/dL (8.5-10.1)
[2024-01-09 15:29] LABS: ALBUMIN 3.7 g/dl (3.4-5.0); MAGNESIUM 2.2 mg/dL (1.8-2.4)
[2024-01-09 15:32] LABS: PH,URINE 6.5 (5.0-8.0); URINE APPEARANCE CLEAR; URINE BILIRUBIN NEGATIVE (NEGATIVE); URINE COLOR YELLOW; URINE GLUCOSE (UA) NEGATIVE (NEGATIVE); URINE KETONE NEGATIVE (NEGATIVE); URINE LEUK ESTERASE NEGATIVE (NEGATIVE); URINE NITRITE NEGATIVE (NEGATIVE); URINE PROTEIN NEGATIVE (NEGATIVE); URINE UROBILINOGEN 0.2 mg/dL (0.2-1.0)
[2024-01-09 15:32] LABS: CREATININE 1.1 mg/dL (0.55-1.3)
[2024-01-09 15:33] LABS: BILIRUBIN,TOTAL 0.3 mg/dL (0.2-1); TOT PROT 7.8 g/dl (6.4-8.2)
[2024-01-09 17:26] VITALS: BP 133/77; PULSE 58
== END 2024-01-09 17:37 | disposition home or self-care (01) ==
LOC: JER 13:40
PROC: 3E033NZ Introduction of Analgesics, Hypnotics, Sedatives into Peripheral Vein, Percutaneous Approach (ICD-10-PCS; principal; 2024-01-09)
PROC: 3E033NZ Introduction of Analgesics, Hypnotics, Sedatives into Peripheral Vein, Percutaneous Approach (ICD-10-PCS; 2024-01-09)
DX: K59.00 Constipation, unspecified (principal); R10.32 Left lower quadrant pain
CPT/HCPCS: 36415; 74177-TC; 80053; 81003; 83690; 83735; 85025; 85610; 86850; 86900; 86901; 87086; 99285-25; Q9967